=== PATIENT | female | born 1930 | race Caucasian/White ===

== ENCOUNTER 2017-06-06 07:39 | Inpatient (IN) | payer MEDICARE, OTHER ==
--- NOTE | 2017-06-06 07:49 | ED ---
General Adult HPI - General Stated complaint: Chest pain Time Seen by Provider: 06/06/17 07:39 Source: RN notes reviewed - History of Present Illness Initial comments: This is an 87-year-old female who presents emergency Department from [facility]. Patient states this morning about 1:30 she woke up chest pain she rates about 3:30 go to the hospital. When the patient got to the hospital she did have some EKG changes according to the heart beat ER and an slightly elevated troponin. Patient also states that she had some radiation of this pain to the left shoulder. There was no shortness of breath there is no swelling there was no nausea. Patient denies any diabetes or hypertension but she does have high cholesterol. Patient states she's never smoked. Patient has no family history of heart disease at young age. Patient states that they gave her aspirin and nitroglycerin and it took away her pain and she's been pain -free since. Patient denies any recent fever chills or cough per patient denies abdominal pain patient denies any vomiting or diarrhea. Patient denies headache patient denies numbness weakness. Patient denies lightheadedness dizziness or any near syncopal episode. Patient denies any swelling to the legs or calf pain. - Related Data Home Medications Medication Instructions Recorded Confirmed Latanoprost [Xalatan 0.005%] 1 drop RIGHT EYE DAILY 06/06/17 06/06/17 Levothyroxine Sodium [Synthroid] 150 mcg PO DAILY 06/06/17 06/06/17 Timolol 0.5% Ophth Soln [Timoptic 1 drop BOTH EYES BID 06/06/17 06/06/17 0.5% Ophth Soln] Allergies Allergy/AdvReac Type Severity Reaction Status Date / Time No Known Allergies Allergy Verified 06/06/17 09:08 Review of Systems ROS Statement: Those systems with pertinent positive or pertinent negative responses have been documented in the HPI. ROS Other: All systems not noted in ROS Statement are negative. General Exam - General Exam Comments Initial Comments: GENERAL: Patient is well-developed and well-nourished. Patient is nontoxic and well- hydrated and is in no acute distress. ENT: Neck is soft and supple. No significant lymphadenopathy is noted. Oropharynx is clear. Moist mucous membranes. Neck has full range of motion without eliciting any pain. EYES: The sclera were anicteric and conjunctiva were pink and moist. Extraocular movements were intact and pupils were equal round and reactive to light. Eyelids were unremarkable. PULMONARY: Unlabored respirations. Good breath sounds bilaterally. No audible rales rhonchi or wheezing was noted. CARDIOVASCULAR: There is a regular rate and rhythm without any murmurs gallops or rubs. ABDOMEN: Soft and nontender with normal bowel sounds. No palpable organomegaly was noted. There is no palpable pulsatile mass. SKIN: Skin is clear with no lesions or rashes and otherwise unremarkable. NEUROLOGIC: Patient is alert and oriented x3. Cranial nerves II through XII are grossly intact. Motor and sensory are also intact. Normal speech, volume and content. Symmetrical smile. MUSCULOSKELETAL: Normal extremities with adequate strength and full range of motion. No lower extremity swelling or edema. No calf tenderness. LYMPHATICS: No significant lymphadenopathy is noted PSYCHIATRIC: Normal psychiatric evaluation. Normal interpersonal interactions appears functionally intact in deals appropriately with others. No signs of depression. No signs of anxiety. Course Vital Signs 06/06/17 06/06/17 06/06/17 07:41 08:12 08:28 Temperature 99 F Pulse Rate 85 77 Pulse Rate [ 75 Cyber Reverse Engineer ] Respiratory 18 18 Rate Blood Pressure 153/94 148/73 O2 Sat by Pulse 100 100 Oximetry Medical Decision Making - Medical Decision Making EKG shows normal sinus rhythm at 80 bpm ID interval 156 QRS is 82 QT interval 396 QTC is 456. Patient's EKG shows no ST segment elevation or depression. However I looked at the old EKG from a patient there was some significant ST depression in precordial leads V3 through V6 as well as some slight depression in leads 2 Patient's troponin came back at 1.3. I spoke with Dr. Chong and he stated he did did not want to take the patient to the general labor forklift operator until tomorrow as long she was chest pain-free now. I spoke with Dr. Dr. Castellon he agreed to admit the patient admitted the patient I wrote admitting orders. Continue the heparin I continue Nitropaste and aspirin on the floor as well. - Lab Data Lab Results 06/06/17 Range/Units 07:48 Troponin I 1.350 H* (0.000-0.034) ng/mL Critical Care Time Critical Care Time: Yes Total Critical Care Time: 35 Disposition Clinical Impression: Non-STEMI (non-ST elevated myocardial infarction) Disposition: ADMITTED IP TO THIS HOSP Time of Disposition: 09:05
[2017-06-06] MEDS ORDERED: NITROGLYCERIN OINT 1 INCH/GM PACKET TOPICAL STA (08:01)
[2017-06-06] MEDS ORDERED: HEPARIN SOD,PORK IN 0.45% NACL 25,000 UNIT in 0.45% NACL 1 500ML.BAG IV SCH (08:15)
[2017-06-06] MEDS ORDERED: ATORVASTATIN 80 MG TAB PO STA (09:04)
[2017-06-06] MEDS ORDERED: NITROGLYCERIN SL TABS 0.4 MG TAB SUBLINGUAL PRN ×2 (09:05→12:19)
[2017-06-06] MEDS ORDERED: LIDOCAINE 2% INJ 20 MG/ML SQ ONE ×2 (11:21)
[2017-06-06] MEDS ORDERED: MIDAZOLAM 2 MG/2 ML VIAL ONE (11:25)
[2017-06-06] MEDS ORDERED: MIDAZOLAM 2 MG/2 ML VIAL IVP ONE (11:25)
--- NOTE | 2017-06-06 11:31 | CONS ---
CONSULTATION CHIEF COMPLAINT: Chest pain HISTORY OF PRESENT ILLNESS: This is an 87-year-old lady with no significant past medical history who presented to [facility] with cardiac chest pain. It came on suddenly. Describes it as a pressure-like sensation that radiated to her back and she became diaphoretic. Initial EKG showed ST-segment depression by that time and she was transferred over to [facility], where by the time she arrived here in the ER, doctor evaluated her and her chest pain has resolved and the EKG ST-segment depression has come down. The troponin came back elevated and she was started on IV heparin, aspirin, nitrates, beta blockers. While in the ER waiting for admission to the bed, she had an episode of chest pain and an EKG showed acute ST-segment elevation from V1 to V6 suggestive of an occlusion in the proximal LAD. We are taking the patient emergently for cardiac catheterization. The patient's daughter had been explained the risks, benefits and alternatives. MEDICATIONS: None. ALLERGIES: None. FAMILY HISTORY: Negative for premature coronary artery disease. SOCIAL HISTORY: Negative for smoking, ETOH abuse or drug abuse. REVIEW OF SYSTEMS: HEENT is unremarkable. Cardiac as described above. Respiratory negative. GI negative. negative. Allergy none. Skin negative. Musculoskeletal significant for arthritis. Psychosocial negative. Endocrine: Negative. Derm negative. Constitutional negative. Oncological negative. SNOWMAKER: Negative. Rest of the system review is not relevant. EXAM: Patient is comfortable at rest. Blood pressure is somewhat low at 80/60. There is no jugular venous distention, carotid upstroke is normal, there is no bruits. Chest exam revealed good air entry bilaterally. Heart: Normal first and second heart sounds. No gallop. No murmur. No rub. Abdomen: Soft. Extremities without edema. Palpable pulses felt. SNOWMAKER exam did not reveal focal neurological deficits. ASSESSMENT: Acute anterior wall myocardial infarction. PLAN: Patient will undergo emergent cardiac catheterization with a view to performing angioplasty. MMODL / IJN: [id number] /
[2017-06-06] MEDS ORDERED: SODIUM CHLORIDE 0.9% 500 ML IV ONE ×2 (11:32→11:33)
[2017-06-06] MEDS ORDERED: BIVALIRUDIN BOLUS 250 MG/50 ML IV ONE (11:41)
[2017-06-06] MEDS ORDERED: BIVALIRUDIN 250 MG in SODIUM CHLORIDE 0.9% 50 ML IV ONE (11:42)
[2017-06-06] MEDS ORDERED: NITROGLYCERIN 1000MCG/10ML SYRINGE INTRACORON ONE (11:55)
[2017-06-06] MEDS ORDERED: CLOPIDOGREL 75 MG TAB ONE (11:57)
[2017-06-06] MEDS ORDERED: LIDOCAINE 2% INJ 20 MG/ML (20 ML MDV) ONE (11:57)
[2017-06-06] MEDS ORDERED: MORPHINE SULFATE 4 MG/ML SYRINGE ONE (11:58)
[2017-06-06] MEDS ORDERED: CLOPIDOGREL 75 MG TAB PO ONE (12:03)
[2017-06-06] MEDS ORDERED: MORPHINE SULFATE 4 MG/ML SYRINGE IVP ONE (12:03)
[2017-06-06] MEDS ORDERED: IODIXANOL 320 MG/ML 100 ML INTRAARTER ONE (12:04)
[2017-06-06] MEDS ORDERED: RX INFO: IV CONTRAST WAS GIVEN 1 EACH MISC MISCELLANE PRN (12:19)
[2017-06-06] MEDS ORDERED: ZOLPIDEM 5 MG TAB PO PRN (12:19)
[2017-06-06] MEDS ORDERED: ATROPINE SULFATE 0.1 MG/ML 10ML SYRINGE IV PRN (12:19)
[2017-06-06] MEDS ORDERED: MAG HYDROX/AL HYDROX/SIMETH 30 ML CUP PO PRN (12:19)
[2017-06-06 12:53] LABS: Glucose,Whole Blood 102 mg/dL (75-99)
--- NOTE | 2017-06-06 13:01 | CC ---
CARDIAC CATHETERIZATION REPORT INDICATION: Acute ST-segment elevation HI. The patient came to our emergency room with acute ischemic syndrome and declared herself as an acute ST-segment elevation HI at 10:57. She was expeditiously brought to the supervisor laboratory animal facility for primary angioplasty. PROCEDURE NOTE: After obtaining informed consent, left heart catheterization and coronary angiogram were performed via the right femoral artery using standard Reilly catheters. The patient tolerated the procedure well without any obvious immediate complications. Patient received moderate conscious sedation. Total sedation time was 15 minutes. FINDINGS: 1. Hemodynamics: Left ventricular end-diastolic pressure is 20 mm. There is no significant gradient across aortic valve. 2. Left Ventriculogram: Left ventriculogram is not performed. 3. ANGIOGRAPHIC DATA: Left Main Coronary Artery: Left main coronary artery is normal size vessel and is free of stenosis. Divides into left anterior descending coronary artery and circumflex coronary artery. LAD shows a 99% stenosis in its midportion at the origin of the 2nd diagonal branch. Circumflex coronary artery and its branches have significant stenosis. Right coronary artery is a large dominant vessel and is free of significant stenosis. CONCLUSIONS: A 99% focal stenosis in LAD which is a vessel responsible for the myocardial infarction. The patient will undergo angioplasty with stent placement of the LAD by Dr. Elma Hoang, the on-call application penetration tester. MMODL / IJN: [id number] /
[2017-06-06] MEDS: SODIUM CHLORIDE 0.9% 1,000 ML IV SCH (13:10)
[2017-06-06] MEDS: NITROGLYCERIN OINT 1 INCH/GM PACKET TOPICAL SCH ×2 (13:10→17:49)
--- NOTE | 2017-06-06 13:22 | PTCA ---
PERCUTANEOUSTRANS CORORONARY ANGIOGRAPHY DATE OF SERVICE: 06/06/17. PROCEDURE: PTCA and stenting of proximal LAD with a drug-eluting stent performed in the setting of an acute ST-elevation myocardial infarction with reperfusion accomplished in 47 minutes. PERFORMED BY: Dr. Gabo Hoang. ANESTHESIA: Moderate conscious sedation time was 26 minutes. Patient was given Versed and Benadryl and monitored closely with her oxygen saturation as well as vital signs and EKG. CLINICAL INFORMATION: Mrs. Coco Segundo is 87-year-old lady with a history of hypertension and hypothyroidism, transferred from [facility] with mild troponin elevation. Her EKG was normal and she was pain free. While in the emergency room waiting to go to telemetry unit, she developed chest pain and demonstrated ST elevation. This occurred at 10:57 a.m. A STEMI alert was called and she was evaluated by Dr. Chong, who performed coronary angiography, which revealed a 95% proximal LAD stenosis. The patient was pain free when I began the procedure. She has noncritical disease in other vessels and mildly elevated filling pressures. PROCEDURE NOTE: The existing 6-Malawian introducer in the right femoral artery was used to perform procedure. A standard left Reilly guide catheter was used to cannulate the left coronary artery. A run-through wire was used to cross the lesion. Wire was kept distally. A 2.75 caliber 12 mm NC trek balloon was used to pre-dilate the lesion. A 23 mm long 3.25 caliber Xience stent was deployed at 11 atmospheres. Patient had chest pain and precordial ST elevation. Excellent angiographic result was achieved. She received Angiomax bolus and infusion and 600 mg of Plavix. The sheath was taken out and a Perclose device used to secure hemostasis. Initially, there was good hemostasis, but then the sutures seemed to have come loose when I cut it and patient started bleeding. Manual compression was applied and FemoStop will also be applied. Patient tolerated procedure well without complication. Findings and results were discussed with the patient and family members. She was sent to the room in a stable condition. MMODL / JCARLOSN: [id number] /
[2017-06-06 14:30] LABS: Creatine Kinase MB 7.4 ng/mL (0.0-2.4); Troponin I 1.49 ng/mL (0.000-0.034)
--- NOTE | 2017-06-06 16:34 | HP ---
HISTORY AND PHYSICAL DATE OF SERVICE: June 06, 2017. CHIEF COMPLAINT: Chest pain. BRIEF HISTORY: Patient is an 87-year-old female patient with no significant past medical history, presented to emergency department from [facility] with chest pain. The patient described it as a pressure-like sensation in the middle of the chest and radiating to her back and associated with diaphoresis. The patient also related that the pain radiated to her left shoulder. No shortness of breath and no nausea or vomiting. Patient has no history of diabetes or hypertension. No history of hyperlipidemia. No history of smoking. FAMILY HISTORY: No family history of heart disease at a young age. The patient was given aspirin and nitroglycerin in the ED and she became chest pain free. The EKG showed ST depression. Cardiac workup was done which showed an elevated troponin. The patient was started on IV heparin, aspirin, beta blockers and nitrates and patient was transferred to our ED. While in the ER, patient had an episode of chest pain, which at this point showed an acute ST elevation from V1 to V6 suggestive occlusion in proximal LAD. The patient was taken from the emergency room for cardiac catheterization. PAST MEDICAL HISTORY: Significant for hypothyroidism, history of cataracts. ALLERGIES: She has no known drug allergies. MEDICATIONS: Patient is on Xalatan eye drops 1 drop right eye daily. Levothyroxine 150 mcg daily. Timoptic eyedrops 1 drop both eyes b.i.d. SOCIAL HISTORY: Patient denies any history of smoking or alcohol abuse. No IV drug abuse. Family history is negative for coronary artery disease at a younger age. REVIEW OF SYSTEM: Constitutional: Patient denies any fever or chills. HEENT no vision or speech, or hearing loss. Respiratory does give history of shortness of breath with chest pain. No cough. No chest congestion. No wheezing. Cardiovascular as per HPI. Abdomen/GI: No nausea, vomiting or diarrhea. Genitourinary no hematuria. No dysuria. Nervous system: No dizziness or lightheadedness or weakness. Musculoskeletal: No joint or soft tissue deformities. No rashes or pigmentation. Endocrine: No polyuria or polydipsia. Hematological: No bleeding or coagulation disorders. Rest of 14-point review of system is unremarkable. PHYSICAL EXAMINATION: GENERAL: Patient is awake, alert and oriented. She is well developed and well nourished, in no acute distress. Vital signs: Temperature 99, pulse 85, respiration 18, blood pressure 153/94, O2 saturation 100%. HEENT atraumatic, normocephalic. Pupils equal and react to light. Extraocular movements intact. Buccal mucosa is moist. NECK: Supple. No goiter or lymphadenopathy. JVD is negative. No carotid bruit heard. Lungs are clear to auscultation. No rales, rhonchi, or wheezes. Heart is regular rate and rhythm without any murmurs or gallop rhythm. ABDOMEN: Soft, nontender, nondistended. Bowel sounds positive. EXTREMITIES: No edema, clubbing or cyanosis. Neurological examination: Cranial nerves 2-12 grossly intact. No gross motor or sensory deficit. Skin is warm, dry and intact. Psychiatric examination: The patient has sound judgment and affect. LABS: Available in our emergency department, patient's glucose of 102, troponin 1.35 on arrival and increasing to 1.490. For the rest of the workup, please see the patient's chart. ASSESSMENT: 1. Acute anterior wall myocardial infarction. 2. Hypertension, which was elevated upon arrival later dropped down to 80/60. PLAN: Patient was started on IV heparin in [facility] and aspirin and beta blockers. Plan is for patient to be transferred to cardiac laboratory scientist and be followed up by Cardiology. Will undergo cardiac catheterization and further treatment. MMODL / IJN: [id number] /
[2017-06-06] MEDS: METOPROLOL TARTRATE 12.5 MG TAB PO SCH ×2 (17:49→21:22)
[2017-06-06] MEDS: LISINOPRIL 5 MG TAB PO SCH (20:43)
[2017-06-06] MEDS: TIMOLOL 0.5% OPHTH DROPS 5 ML BTL BOTH EYES SCH (20:43)
[2017-06-06 21:11] LABS: Creatine Kinase MB 8.8 ng/mL (0.0-2.4)
[2017-06-06 21:12] LABS: Troponin I 2.02 ng/mL (0.000-0.034)
[2017-06-07] MEDS: NITROGLYCERIN OINT 1 INCH/GM PACKET TOPICAL SCH ×3 (00:08→10:55)
[2017-06-07] MEDS: SODIUM CHLORIDE 0.9% 1,000 ML IV SCH (00:08)
[2017-06-07 04:47] LABS: Basophils % (A) 0 %; Eosinophils # (A) 0.1 k/uL (0-0.7); Eosinophils % (A) 1 %; HCT 30.8 % (34.0-46.0); HGB 9.6 gm/dL (11.4-16.0); Lymphocytes # (A) 1.2 k/uL (1.0-4.8); Lymphocytes % (A) 14 %; MCV 87.1 fL (80.0-100.0); Mean Platelet Volume 7.1; Monocytes # (A) 0.4 k/uL (0-1.0); Monocytes % (A) 5 %; Neutrophils # (A) 6.8 k/uL (1.3-7.7); Neutrophils % (A) 79 %; Platelet Count 224 k/uL (150-450); RBC 3.54 m/uL (3.80-5.40); RDW 14.1 % (11.5-15.5); WBC 8.6 k/uL (3.8-10.6)
[2017-06-07 04:59] LABS: Anion Gap 9 mmol/L; Blood Urea Nitrogen 17 mg/dL (7-17); Calcium 8.7 mg/dL (8.4-10.2); Carbon Dioxide 21 mmol/L (22-30); Chloride 106 mmol/L (98-107); Cholesterol 197 mg/dL (<200); Glucose 122 mg/dL (74-99); HDL Cholesterol 48 mg/dL (40-60); LDL Cholesterol,Calculated 120 mg/dL (0-99); Potassium 4.4 mmol/L (3.5-5.1); Sodium 136 mmol/L (137-145); Triglycerides 145 mg/dL (<150)
[2017-06-07] MEDS: LEVOTHYROXINE 75 MCG TAB PO SCH (06:25)
[2017-06-07] MEDS: CLOPIDOGREL 75 MG TAB PO SCH (08:28)
[2017-06-07] MEDS: METOPROLOL TARTRATE 12.5 MG TAB PO SCH ×2 (08:28→16:44)
[2017-06-07] MEDS: ASPIRIN 81 MG PO SCH (08:28)
[2017-06-07] MEDS: TIMOLOL 0.5% OPHTH DROPS 5 ML BTL BOTH EYES SCH ×2 (08:29→20:31)
[2017-06-07] MEDS: LATANOPROST 0.005% OPHTH DROPS 2.5 ML BTL RIGHT EYE SCH (08:29)
[2017-06-07] MEDS ORDERED: ASPIRIN 325 MG TAB PO SCH (09:00)
[2017-06-07 10:08] VITALS: BMI 24.7
--- NOTE | 2017-06-07 12:43 | ECHOF ---
Referral Reason:S/P Ant STEMI and LAD PCI MEASUREMENTS -------- HEIGHT: 162.6 cm WEIGHT: 67.6 kg BP: 109/50 IVSd: 1.1 cm (0.6 - 1.1) LVIDd: 4.2 cm (3.9 - 5.3) LVPWd: 0.9 cm (0.6 - 1.1) IVSs: 1.5 cm LVIDs: 2.3 cm LVPWs: 1.5 cm LAESV Index (A-L): 27.32 ml/m Ao Diam: 3.3 cm (2.0 - 3.7) AV Cusp: 2.2 cm (1.5 - 2.6) LA Diam: 3.9 cm (2.7 - 3.8) MV EXCURSION: 14.924 mm (> 18.000) MV EF SLOPE: 68 mm/s (70 - 150) EPSS: 0.6 cm MV E Sabino: 1.00 m/s MV DecT: 221 ms MV A Sabino: 1.24 m/s MV E/A Ratio: 0.81 RAP: 5.00 mmHg RVSP: 33.45 mmHg FINDINGS -------- Sinus rhythm. This was a technically good study. The left ventricular size is normal. Left ventricular wall thickness is normal. Overall left vent ricular systolic function is mildly impaired with, an EF between 45 - 50 %. Apical anterior LV wall motion is hypokinetic. Apical septum LV wall motion is hypokinetic. The right ventricle is normal in size and function. The left atrium is normal in size. The right atrium is normal in size. The aortic valve is trileaflet, and appears structurally normal. No aortic stenosis or regurgitation. The mitral valve leaflets are mildly thickened. Moderate mitral regurgitation is present. Mild tricuspid regurgitation present. The right ventricular systolic pressure, as measured by Doppl er, is 33.45mmHg. Pulmonic valve appears structurally normal. The aortic root size is normal. Normal inferior vena cava with normal inspiratory collapse consistent with estimated right atrial pre ssure of 5 mmHg. The pericardium is normal. CONCLUSIONS -------- 1. Sinus rhythm. 2. This was a technically good study. 3. The left ventricular size is normal. 4. Left ventricular wall thickness is normal. 5. The right ventricle is normal in size and function. 6. The left atrium is normal in size. 7. The right atrium is normal in size. 8. The aortic valve is trileaflet, and appears structurally normal. No aortic stenosis or regurgitati on. 9. The mitral valve leaflets are mildly thickened. 10. Moderate mitral regurgitation is present. 11. Mild tricuspid regurgitation present. 12. The right ventricular systolic pressure, as measured by Doppler, is 33.45mmHg. 13. Pulmonic valve appears structurally normal. 14. The aortic root size is normal. 15. Normal inferior vena cava with normal inspiratory collapse consistent with estimated right atrial pressure of 5 mmHg. 16. The pericardium is normal. CIVIL ENGINEERING TECHNICIAN: Mary White RDCS
--- NOTE | 2017-06-07 13:20 | PN ---
PROGRESS NOTE An 87-year-old lady that was admitted to hospital with acute anterior wall myocardial infarction, underwent cardiac catheterization and angioplasty of mid LAD. This morning she is feeling fine. Denies chest pain, difficulty in breathing or palpitations. Remains in sinus rhythm and hemodynamically stable. An echocardiogram on her shows apical septal hypokinesis with an ejection fraction of 45% to 50%. She has had 4 sets of troponins, the last one was 2.3. Her LDL cholesterol is 130. On exam, comfortable at rest. Heart rate is around 70 beats per minute. Blood pressure is 101/53, respiratory rate is 18. Chest exam reveals good air entry bilaterally. Heart exam reveals first and second heart sounds. No gallop. Examination of extremities did not reveal edema. Peripheral pulses are felt. The patient is currently on aspirin, Lipitor, Zestril, Lopressor. Her groin is free of bleeding, bruit, hematoma and there is mild ecchymosis. ASSESSMENT: Acute anterior wall myocardial infarction, status post catheterization and angioplasty. PLAN: Patient is doing well. She is stable to be transferred out of ICU. We should be able to discharge her home over the next 24 to 48 hours. MMODL / IJN: [id number] /
--- NOTE | 2017-06-07 16:53 | P.PN ---
Subjective Progress Note Date: 06/07/17 Progress note being dictated for Dr. Castellon. Interval history: This 87-year-old female admitted with acute anterior wall MD, status post cardiac catheterization with angioplasty of the LAD. Telemetry sinus rhythm. Continues to do well. Good diet intake with no nausea vomiting or diarrhea. Denies chest pain, palpitations or increasing shortness of breath. Echo reports mildly impaired LV function, EF 45-50%, hypokinetic apical anterior LV wall motion, moderate mitral regurgitation. Troponin is 1.35 , 1.49, 2.02, 2.350. Cholesterol 197, LDL 120. Objective - Vital Signs Vital signs: Vital Signs Temp 98.9 F 06/07/17 12:00 Pulse 70 06/07/17 12:30 Resp 47 H 06/07/17 12:30 BP 101/53 06/07/17 12:30 Pulse Ox 96 06/07/17 12:30 Intake & Output 06/06/17 06/07/17 06/07/17 18:59 06:59 18:59 Intake Total 981 1100 900 Output Total 1050 1325 550 Balance -69 -225 350 Weight 67.585 kg 65.4 kg 65.4 kg Intake: IV 531 825 Sodium Chloride 0.9% 1, 825 000 ml @ 75 mls/hr IV . [id number] THOMAS Rx#:[id number] Intake, IV Titration 450 75 Amount Sodium Chloride 0.9% 1, 450 75 000 ml @ 75 mls/hr IV . [id number] THOMAS Rx#:[id number] Oral 200 900 Output: Urine 1050 1325 550 Other: Voiding Method Indwelling Catheter Indwelling Catheter Indwelling Catheter - Exam PHYSICAL EXAM: VITAL SIGNS: [As above] GENERAL: Sitting up in bed, no acute distress, reading the newspaper HEENT: Conjunctivae normal. eyes normal. Oral mucosa moist. NECK: No JVD. No thyroid enlargement. No LNs CARDIOVASCULAR: S1, S2 muffled. Positive systolic murmur RESPIRATION: Breath sounds diminished in the bases. No rhonchi or crackles. No bronchial breathing. ABDOMEN: Soft, nontender . No guarding. no masses palpable. Bowel sounds heard. LEGS: No edema. no swelling PSYCHIATRY: Alert and oriented -3, mood and affect normal. NERVOUS SYSTEM: Cranial N 2-12 grossly normal. Moves all 4 limbs. Diffuse weakness No focal deficits. Skin: no ulcer no rash Joints: No active swelling. No inflammation. Lymphatic system. No LN neck axilla or groin. - Labs CBC & Chem 7: 06/07/17 04:17 06/07/17 04:17 Labs: Abnormal Lab Results - Last 24 Hours (Table) 06/06/17 06/06/17 06/06/17 Range/Units 12:51 13:23 20:03 RBC (3.80-5.40) m/uL Hgb (11.4-16.0) gm/dL Hct (34.0-46.0) % Sodium (137-145) mmol/L Carbon Dioxide (22-30) mmol/L Glucose (74-99) mg/dL POC Glucose (mg/dL) 102 H (75-99) mg/dL CK-MB (CK-2) 7.4 H* 8.8 H* (0.0-2.4) ng/mL Troponin I 1.490 H* 2.020 H* (0.000-0.034) ng/mL LDL Cholesterol, Calc (0-99) mg/dL 06/07/17 06/07/17 06/07/17 Range/Units 04:17 04:17 04:17 RBC 3.54 L (3.80-5.40) m/uL Hgb 9.6 L (11.4-16.0) gm/dL Hct 30.8 L (34.0-46.0) % Sodium 136 L (137-145) mmol/L Carbon Dioxide 21 L (22-30) mmol/L Glucose 122 H (74-99) mg/dL POC Glucose (mg/dL) (75-99) mg/dL CK-MB (CK-2) (0.0-2.4) ng/mL Troponin I 2.350 H* (0.000-0.034) ng/mL LDL Cholesterol, Calc 120 H (0-99) mg/dL Assessment and Plan Assessment: 1. Acute anterior wall MD, status post catheterization and angioplasty of the LAD 2. Hypertension 3. Hyperlipidemia Plan: Continue current medication regime , aspirin, statin, beta ike , monitoring and symptomatic treatment. Awaiting transfer out of ICU to telemetry unit. Follow closely with cardiology. Discharge planning in progress for possibly tomorrow pending cardiology clearance. The impression and plan of care has been dictated as directed. : I performed a history and examination of this patient, discussed the same with the dictator. I agree with the dictator's note ,documented as a scribe. Any additional findings or plans will be noted.
[2017-06-07] MEDS: LISINOPRIL 5 MG TAB PO SCH (20:32)
[2017-06-07] MEDS: ATORVASTATIN 40 MG TAB PO SCH (20:32)
[2017-06-08] MEDS: METOPROLOL TARTRATE 12.5 MG TAB PO SCH ×4 (00:03→20:23)
[2017-06-08 06:55] LABS: HCT 30.4 % (34.0-46.0); HGB 10.4 gm/dL (11.4-16.0); MCHC 34.2 g/dL (31.0-37.0); MCV 84.7 fL (80.0-100.0); Mean Platelet Volume 6.9; Platelet Count 203 k/uL (150-450); RBC 3.59 m/uL (3.80-5.40); RDW 13.7 % (11.5-15.5); WBC 7.9 k/uL (3.8-10.6)
[2017-06-08 07:18] LABS: Anion Gap 9 mmol/L; Blood Urea Nitrogen 13 mg/dL (7-17); Calcium 8.7 mg/dL (8.4-10.2); Carbon Dioxide 24 mmol/L (22-30); Chloride 102 mmol/L (98-107); Glucose 103 mg/dL (74-99); Potassium 4.4 mmol/L (3.5-5.1); Sodium 135 mmol/L (137-145)
[2017-06-08] MEDS: LEVOTHYROXINE 75 MCG TAB PO SCH (08:24)
[2017-06-08] MEDS: ASPIRIN 81 MG PO SCH (08:24)
[2017-06-08] MEDS: TIMOLOL 0.5% OPHTH DROPS 5 ML BTL BOTH EYES SCH ×2 (08:25→20:24)
[2017-06-08] MEDS: LATANOPROST 0.005% OPHTH DROPS 2.5 ML BTL RIGHT EYE SCH (08:25)
[2017-06-08] MEDS: CLOPIDOGREL 75 MG TAB PO SCH (08:25)
--- NOTE | 2017-06-08 14:10 | PN ---
PROGRESS NOTE An 87-year-old lady who was admitted to hospital with acute myocardial infarction. Underwent cardiac catheterization, angioplasty of LAD. She is doing well and is free of cardiac symptoms. Remains in sinus rhythm. Blood pressure is normal. Patient is on aspirin, Lipitor, Plavix, Zestril, Lopressor. PHYSICAL EXAM: Comfortable at rest. Vital signs are stable. There is no jugular venous distention. Carotid upstroke is normal. There is no bruit. Chest exam reveals good air entry bilaterally. Heart exam reveals first and second heart sounds. No gallop. No murmur. Abdomen is soft, nontender. Exam of extremities did not reveal any edema. Peripheral pulses are felt. ASSESSMENT: Status post acute anterior wall myocardial infarction. PLAN: Patient is doing well. Will ambulate her, answer a lot of questions from the patient's daughter. We should be able to discharge her home tomorrow. MMODL / IJN: [id number] /
--- NOTE | 2017-06-08 16:26 | P.PN ---
Subjective Progress Note Date: 06/08/17 Progress note being dictated for Dr. Castellon. Interval history: This 87-year-old female admitted with acute anterior wall MA, status post cardiac catheterization with angioplasty of the LAD. Telemetry sinus rhythm. Continues to do well. Good diet intake with no nausea vomiting or diarrhea. Denies chest pain, palpitations or increasing shortness of breath. Echo reports mildly impaired LV function, EF 45-50%, hypokinetic apical anterior LV wall motion, moderate mitral regurgitation. Troponin is 1.35 , 1.49, 2.02, 2.350. Cholesterol 197, LDL 120. 06/08/17 no overnight events. Telemetry sinus rhythm. Ambulating with in room with no chest pain, no focal deficits, no dizziness, no palpitations, no increased shortness of breath. Objective - Vital Signs Vital signs: Vital Signs Temp 98.2 F 06/08/17 14:00 Pulse 71 06/08/17 15:00 Resp 24 06/08/17 16:00 BP 146/66 06/08/17 14:00 Pulse Ox 98 06/08/17 14:00 Intake & Output 06/07/17 06/08/17 06/08/17 18:59 06:59 18:59 Intake Total 1500 370 720 Output Total 550 0 Balance 950 370 720 Weight 65.4 kg 65.6 kg 65.6 kg Intake: Oral 1500 370 720 Output: Urine 550 0 Other: Voiding Method Toilet Toilet Toilet # Voids 1 1 1 - Exam PHYSICAL EXAM: VITAL SIGNS: [As above] GENERAL: Sitting up in bed, no acute distress HEENT: Conjunctivae normal. eyes normal. Oral mucosa moist. NECK: No JVD. No thyroid enlargement. No LNs CARDIOVASCULAR: S1, S2 muffled. No murmurs RESPIRATION: Breath sounds diminished in the bases. No rhonchi or crackles. ABDOMEN: Soft, nontender . No guarding. no masses palpable. Bowel sounds heard. LEGS: No edema. no swelling PSYCHIATRY: Alert and oriented -3, mood and affect normal. NERVOUS SYSTEM: Cranial N 2-12 grossly normal. Moves all 4 limbs. No focal deficits. Skin: no ulcer no rash Joints: No active swelling. No inflammation. Lymphatic system. No LN neck axilla or groin. - Labs CBC & Chem 7: 06/08/17 06:28 06/08/17 06:28 Labs: Abnormal Lab Results - Last 24 Hours (Table) 06/08/17 06/08/17 Range/Units 06:28 06:28 RBC 3.59 L (3.80-5.40) m/uL Hgb 10.4 L (11.4-16.0) gm/dL Hct 30.4 L (34.0-46.0) % Sodium 135 L (137-145) mmol/L Glucose 103 H (74-99) mg/dL Assessment and Plan Assessment: 1. Acute anterior wall MA, status post catheterization and angioplasty of the LAD 2. Hypertension 3. Hyperlipidemia Plan: Continue current medication regime , aspirin, statin, beta kie , monitoring and symptomatic treatment. Increase ambulation as tolerated. Follow closely with cardiology. Discharge planning in progress for tomorrow pending cardiology clearance. The impression and plan of care has been dictated as directed. : I performed a history and examination of this patient, discussed the same with the dictator. I agree with the dictator's note ,documented as a scribe. Any additional findings or plans will be noted.
[2017-06-08] MEDS: ATORVASTATIN 40 MG TAB PO SCH (20:23)
[2017-06-09] MEDS: LISINOPRIL 5 MG TAB PO SCH (01:23)
[2017-06-09 05:13] LABS: Basophils % (A) 0 %; Eosinophils # (A) 0.3 k/uL (0-0.7); Eosinophils % (A) 4 %; HCT 29.7 % (34.0-46.0); HGB 10.2 gm/dL (11.4-16.0); Lymphocytes # (A) 1.4 k/uL (1.0-4.8); Lymphocytes % (A) 20 %; MCH 28.7 pg (25.0-35.0); MCHC 34.2 g/dL (31.0-37.0); Mean Platelet Volume 7.1; Monocytes # (A) 0.4 k/uL (0-1.0); Monocytes % (A) 5 %; Neutrophils # (A) 4.8 k/uL (1.3-7.7); Neutrophils % (A) 68 %; Platelet Count 213 k/uL (150-450); RBC 3.54 m/uL (3.80-5.40); RDW 13.8 % (11.5-15.5)
[2017-06-09 05:21] LABS: Prothrombin Time 10.2 sec (9.0-12.0)
[2017-06-09 05:27] LABS: Anion Gap 7 mmol/L; Blood Urea Nitrogen 16 mg/dL (7-17); Carbon Dioxide 27 mmol/L (22-30); Chloride 102 mmol/L (98-107); Glucose 106 mg/dL (74-99); Magnesium 1.9 mg/dL (1.6-2.3); Phosphorus 3.5 mg/dL (2.5-4.5); Potassium 4.6 mmol/L (3.5-5.1); Sodium 136 mmol/L (137-145)
[2017-06-09] MEDS: LEVOTHYROXINE 75 MCG TAB PO SCH (07:16)
[2017-06-09] MEDS: LATANOPROST 0.005% OPHTH DROPS 2.5 ML BTL RIGHT EYE SCH (07:59)
[2017-06-09] MEDS: METOPROLOL TARTRATE 12.5 MG TAB PO SCH (07:59)
[2017-06-09] MEDS: TIMOLOL 0.5% OPHTH DROPS 5 ML BTL BOTH EYES SCH (07:59)
[2017-06-09] MEDS: ASPIRIN 81 MG PO SCH (08:00)
[2017-06-09] MEDS: CLOPIDOGREL 75 MG TAB PO SCH (08:00)
[2017-06-09 08:36] VITALS: TEMP 98
[2017-06-09 11:33] VITALS: BP 113/54; PULSE 62; RESP 19
--- NOTE | 2017-06-09 12:44 | PN ---
PROGRESS NOTE Coco is an 87-year-old lady that is admitted to hospital with anterior wall myocardial infarction, underwent cardiac catheterization and angioplasty. This morning, she is feeling well, has some ecchymosis in the groin, but denies any symptoms otherwise. She is on aspirin, Plavix, Lipitor, Zestril 5 mg daily, Lopressor 12.5 b.i.d., and sublingual nitroglycerin on p.r.n. basis. On exam, comfortable at rest. Vital signs are stable. There is no jugular venous distention. Carotid upstroke is normal. There is no bruit. Chest exam reveals good air entry bilaterally. Heart exam reveals first and second heart sounds. No gallop. No murmur. No rub. Abdomen is soft, nontender. Examination of extremities did not reveal any edema. Peripheral pulses are palpable. Groin exam reveals ecchymosis, but there is no hematoma and no bruit. ASSESSMENT: Acute anterior wall myocardial infarction, status post catheterization and angioplasty. The patient is doing well. She is stable to be discharged home and she will have her follow up through [facility] as per her request. MMODL / IJN: [id number] /
--- NOTE | 2017-06-10 21:03 | P.DS ---
Providers Date of admission: 06/06/17 09:16 Expected date of discharge: 06/09/17 Attending physician: Giovanny Castellon Consults: 06/06/17 09:05 Consult Physician Urgent Consulting Provider: Latosha Hernandez Consult Reason/Comments: Non-STEMI Do you want consulting provider notified?: Yes 06/06/17 12:19 Consult Physician Routine Consulting Provider: Latosha Hernandez Consult Reason/Comments: Post Interventional patient Do you want consulting provider notified?: Already Contacted Primary care physician: Thomas Ceballos MD Hospital Course: Final Diagnoses: 1. Acute anterior wall [place], status post catheterization and angioplasty of the LAD 2. Hypertension 3. Hyperlipidemia Hospital Course:This 87-year-old female admitted with acute anterior wall [place] and multiple other medical issues.evaluated by cardiology., status post cardiac catheterization with angioplasty of the LAD. Telemetry sinus rhythm. Echo reports mildly impaired LV function, EF 45-50%, hypokinetic apical anterior LV wall motion, moderate mitral regurgitation. Troponin is 1.35, 1.49, 2.02, 2.350. Cholesterol 197, LDL 120.significant clinical improvement. Patient has been cleared for discharge by cardiology. Patient is being discharged home in a stable condition with guarded prognosis. GENERAL: VSS, no acute distress HEENT: Conjunctivae normal. eyes normal. Oral mucosa moist. NECK: No JVD. No thyroid enlargement. No LNs CARDIOVASCULAR: S1, S2 muffled. No murmurs RESPIRATION: Breath sounds diminished in the bases. No rhonchi or crackles. ABDOMEN: Soft, nontender . No guarding. no masses palpable. Bowel sounds heard. LEGS: No edema. no swelling PSYCHIATRY: Alert and oriented -3, mood and affect normal. NERVOUS SYSTEM: Cranial N 2-12 grossly normal. Moves all 4 limbs. No focal deficits. Skin: no ulcer no rash Joints: No active swelling. No inflammation. Lymphatic system. No LN neck axilla or groin. The impression and plan of care has been dictated as directed. : I performed a history and examination of this patient, discussed the same with the dictator. I agree with the dictator's note ,documented as a scribe. Any additional findings or plans will be noted. time taken: 35 minutes Patient Condition at Discharge: Stable Plan - Discharge Summary Discharge Rx Participant: Yes New Discharge Prescriptions: New Aspirin 81 mg PO DAILY #30 chew Atorvastatin [Lipitor] 40 mg PO HS #30 tab Clopidogrel [Plavix] 75 mg PO DAILY #30 tab Lisinopril [Zestril] 5 mg PO HS #30 tab Metoprolol Tartrate [Lopressor] 12.5 mg PO TID #90 tab Nitroglycerin Sl Tabs [Nitrostat] 0.4 mg SUBLINGUAL Q5M PRN #25 tab PRN Reason: Chest Pain Continue Timolol 0.5% Ophth Soln [Timoptic 0.5% Ophth Soln] 1 drop BOTH EYES BID Levothyroxine Sodium [Synthroid] 150 mcg PO DAILY Latanoprost [Xalatan 0.005%] 1 drop RIGHT EYE DAILY Discharge Medication List Latanoprost [Xalatan 0.005%] 1 drop RIGHT EYE DAILY 06/06/17 [History] Levothyroxine Sodium [Synthroid] 150 mcg PO DAILY 06/06/17 [History] Timolol 0.5% Ophth Soln [Timoptic 0.5% Ophth Soln] 1 drop BOTH EYES BID [History] Aspirin 81 mg PO DAILY #30 chew 06/09/17 [Rx] Atorvastatin [Lipitor] 40 mg PO HS #30 tab 06/09/17 [Rx] Clopidogrel [Plavix] 75 mg PO DAILY #30 tab 06/09/17 [Rx] Lisinopril [Zestril] 5 mg PO HS #30 tab 06/09/17 [Rx] Metoprolol Tartrate [Lopressor] 12.5 mg PO TID #90 tab 06/09/17 [Rx] Nitroglycerin Sl Tabs [Nitrostat] 0.4 mg SUBLINGUAL Q5M PRN #25 tab 06/09/17 [Rx ] Follow up Appointment(s)/Referral(s): [facility], [NON-STAFF] - Thomas Ceballos MD [Primary Care Provider] - 3 Days Rito Chong MD [STAFF PHYSICIAN] - 10 Days (Follow up with Dr Bellamy in [place] on 07/01/2017 @ 4PM) Ambulatory/Diagnostic Orders: Complete Blood Count w/diff [LAB.AMB] Time Frame: 3 Days, Location: Determined By Patient Patient Instructions/Handouts: Myocardial Infarction (DC), Heart Catheterization (DC) Activity/Diet/Wound Care/Special Instructions: DIet: Cardiac Activity: limited till f/u Discharge Disposition: HOME SELF-CARE
== END 2017-06-09 13:51 | disposition home or self-care (01) | DRG 247 ==
LOC: EC 07:39 → 6SEL 09:16 → 6ICU 12:05
PROVIDERS: ADMIT Internal Medicine; ATTEND Internal Medicine
PROC: B2111ZZ Fluoroscopy of Multiple Coronary Arteries using Low Osmolar Contrast (ICD-10-PCS; principal; 2017-06-06 11:11)
PROC: 4A023N7 Measurement of Cardiac Sampling and Pressure, Left Heart, Percutaneous Approach (ICD-10-PCS; principal; 2017-06-06 11:11)
PROC: 027034Z Dilation of Coronary Artery, One Artery with Drug-eluting Intraluminal Device, Percutaneous Approach (ICD-10-PCS; principal; 2017-06-06 11:11)
DX: I21.09 ST elevation (STEMI) myocardial infarction involving other coronary artery of anterior wall (principal); I34.0 Nonrheumatic mitral (valve) insufficiency; E03.9 Hypothyroidism, unspecified; E78.00 Pure hypercholesterolemia, unspecified; E78.5 Hyperlipidemia, unspecified; I10 Essential (primary) hypertension; I25.10 Atherosclerotic heart disease of native coronary artery without angina pectoris; Z79.82 Long term (current) use of aspirin; Z79.899 Other long term (current) drug therapy; Z79.890 Hormone replacement therapy; H26.9 Unspecified cataract
CPT/HCPCS: 36415; 80048; 80061; 82550; 82553; 83735; 84100; 84484; 85025; 85027; 85610; 93005; 93306; 93458; 96365; 96366; 99291

== ENCOUNTER 2017-06-28 00:54 | Observation (INO) | payer MEDICARE, OTHER ==
[2017-06-28] MEDS ORDERED: HEPARIN SODIUM,PORCINE 5,000 UNIT/ML 1 ML VIAL IV ONE (01:06)
--- NOTE | 2017-06-28 01:06 | ED ---
General Adult HPI - General Chief complaint: Chest Pain Stated complaint: Chest Pain Time Seen by Provider: 06/28/17 00:55 Source: patient, EMS, RN notes reviewed Mode of arrival: EMS Limitations: no limitations - History of Present Illness Initial comments: This is an 87-year-old female who recently had a heart attack and had one stent placed. Patient comes in to our hospital from [place]. Earlier today she had chest pain she took 2 nitroglycerin and passed out and when she awoke she states the chest pain was gone. Patient states since that time she's had no chest pain or difficulty breathing or shortness of breath. Patient denies any diaphoresis. Patient denies nausea vomiting diarrhea. [facility] wanted to transfer the patient to us because of her recent history of a heart attack and this significantly chest pain being relieved by nitroglycerin. Patient currently has no complaints. Patient denies any recent fever chills or cough. Patient denies any lightheadedness or dizziness. Patient denies any headache patient denies numbness weakness. - Related Data Home Medications Medication Instructions Recorded Confirmed Latanoprost [Xalatan 0.005%] 1 drop RIGHT EYE DAILY 06/06/17 06/06/17 Levothyroxine Sodium [Synthroid] 150 mcg PO DAILY 06/06/17 06/06/17 Timolol 0.5% Ophth Soln [Timoptic 1 drop BOTH EYES BID 06/06/17 06/06/17 0.5% Ophth Soln] Previous Rx's Medication Instructions Recorded Aspirin 81 mg PO DAILY #30 chew 06/09/17 Atorvastatin [Lipitor] 40 mg PO HS #30 tab 06/09/17 Clopidogrel [Plavix] 75 mg PO DAILY #30 tab 06/09/17 Lisinopril [Zestril] 5 mg PO HS #30 tab 06/09/17 Metoprolol Tartrate [Lopressor] 12.5 mg PO TID #90 tab 06/09/17 Nitroglycerin Sl Tabs [Nitrostat] 0.4 mg SUBLINGUAL Q5M PRN #25 tab 06/09/17 Allergies Allergy/AdvReac Type Severity Reaction Status Date / Time No Known Allergies Allergy Verified 06/28/17 01:01 Review of Systems ROS Statement: Those systems with pertinent positive or pertinent negative responses have been documented in the HPI. ROS Other: All systems not noted in ROS Statement are negative. Past Medical History Past Medical History: Eye Disorder, Thyroid Disorder Additional Past Medical History / Comment(s): glaucoma History of Any Multi-Drug Resistant Organisms: None Reported Past Surgical History: Heart Catheterization With Stent Additional Past Surgical History / Comment(s): colonoscopy, cataracts Past Anesthesia/Blood Transfusion Reactions: No Reported Reaction Past Psychological History: No Psychological Hx Reported Smoking Status: Never smoker Past Alcohol Use History: None Reported Past Drug Use History: None Reported General Exam - General Exam Comments Initial Comments: GENERAL: Patient is well-developed and well-nourished. Patient is nontoxic and well- hydrated and is in no acute distress. ENT: Neck is soft and supple. No significant lymphadenopathy is noted. Oropharynx is clear. Moist mucous membranes. Neck has full range of motion without eliciting any pain. EYES: The sclera were anicteric and conjunctiva were pink and moist. Extraocular movements were intact and pupils were equal round and reactive to light. Eyelids were unremarkable. PULMONARY: Unlabored respirations. Good breath sounds bilaterally. No audible rales rhonchi or wheezing was noted. CARDIOVASCULAR: There is a regular rate and rhythm without any murmurs gallops or rubs. ABDOMEN: Soft and nontender with normal bowel sounds. No palpable organomegaly was noted. There is no palpable pulsatile mass. SKIN: Skin is clear with no lesions or rashes and otherwise unremarkable. NEUROLOGIC: Patient is alert and oriented x3. Cranial nerves II through XII are grossly intact. Motor and sensory are also intact. Normal speech, volume and content. Symmetrical smile. MUSCULOSKELETAL: Normal extremities with adequate strength and full range of motion. LYMPHATICS: No significant lymphadenopathy is noted PSYCHIATRIC: Normal psychiatric evaluation. Limitations: no limitations Course Vital Signs 06/28/17 06/28/17 00:57 01:01 Temperature 97 F L Pulse Rate 66 71 Respiratory 20 20 Rate Blood Pressure 160/72 144/70 O2 Sat by Pulse 100 Oximetry Medical Decision Making - Medical Decision Making EKG shows normal sinus rhythm at 64 bpm OR interval 178 QRSs 72 QT interval 448 QTC is 462. Patient has some T-wave inversions in leads V1 through V4. Disposition Clinical Impression: Unstable angina pectoris, Hyponatremia Disposition: ADMITTED IP TO THIS [facility] Referrals: Thomas Ceballos MD [Primary Care Provider] - 1-2 days Time of Disposition: 01:30
[2017-06-28] MEDS ORDERED: HEPARIN SOD,PORK IN 0.45% NACL 25,000 UNIT in 0.45% NACL 1 500ML.BAG IV SCH (01:15)
[2017-06-28] MEDS ORDERED: NITROGLYCERIN SL TABS 0.4 MG TAB SUBLINGUAL PRN ×3 (01:31→11:51)
[2017-06-28 01:43] LABS: Creatine Kinase 31 U/L (30-135)
[2017-06-28 01:56] LABS: Creatine Kinase MB 1.1 ng/mL (0.0-2.4); Troponin I <0.012 ng/mL (0.000-0.034)
[2017-06-28 02:45] VITALS: BMI 25.7
[2017-06-28] MEDS ORDERED: NITROGLYCERIN OINT 1 INCH/GM PACKET TOPICAL SCH (06:00)
[2017-06-28 06:21] LABS: Creatine Kinase 26 U/L (30-135)
[2017-06-28 06:33] LABS: Creatine Kinase MB 1.1 ng/mL (0.0-2.4); Troponin I <0.012 ng/mL (0.000-0.034)
[2017-06-28] MEDS ORDERED: ASPIRIN 325 MG TAB PO STA (08:29)
[2017-06-28] MEDS ORDERED: ALPRAZolam 0.25 MG TAB PO PRN (08:29)
[2017-06-28] MEDS ORDERED: ATORVASTATIN 80 MG TAB PO STA (08:29)
[2017-06-28] MEDS ORDERED: ALPRAZolam 0.5 MG TAB PO PRN (08:29)
[2017-06-28] MEDS ORDERED: SODIUM CHLORIDE 0.9% 1,000 ML in EMPTY BAG 1 BAG IV ONE (08:29)
[2017-06-28] MEDS ORDERED: METOPROLOL TARTRATE 12.5 MG TAB PO SCH (09:00)
[2017-06-28] MEDS ORDERED: LEVOTHYROXINE 75 MCG TAB PO SCH (09:00)
[2017-06-28] MEDS ORDERED: CLOPIDOGREL 75 MG TAB PO SCH (09:00)
[2017-06-28 10:06] VITALS: TEMP 97.1
[2017-06-28] MEDS ORDERED: IV FLUID CONTINUATION 850 ML IV ONE (10:07)
[2017-06-28] MEDS ORDERED: MIDAZOLAM 2 MG/2 ML VIAL IV ONE (10:23)
[2017-06-28] MEDS ORDERED: LIDOCAINE 2% INJ 20 MG/ML SQ ONE (10:24)
--- NOTE | 2017-06-28 10:28 | CONS ---
CONSULTATION Mrs. Segundo is an 87-year-old female with known history of hyperlipidemia who presented 3 weeks ago with a STEMI and underwent cardiac catheterization by Dr. Chong and was found to have a critical stenosis in the LAD and underwent stenting of that vessel by Dr. Elma Hoang. Since her discharge, she has been feeling tired. She has complained of some chest discomfort and has taken nitroglycerin twice. Yesterday while sitting, she had an episode of chest discomfort, left-sided. She is not quite sure if this is the same pain she had at the time of her presentation 3 weeks ago. She took the first nitroglycerin and when she took the second nitroglycerin became unresponsive. She did not have full syncope, was breathing on her own and by the time the EMS came in, she was starting to come around. She is pain-free at this time and her only complaint is she is feeling tired with lack of energy. Prior to this event, she was quite active physically using her treadmill on a regular basis without any limitation. She denies any peripheral edema. No dizziness. No palpitation. No syncope. No clear PND, orthopnea. Her left ventricular systolic function by echocardiography during her last admission showed a mildly to moderately impaired systolic function. Her medications at the time of admission included aspirin, Plavix 75 mg daily, metoprolol tartrate 12.5 mg 3 times a day, lisinopril 5 mg daily and Lipitor 40 mg daily. REVIEW OF SYSTEMS: RESPIRATORY SYSTEM: She has no recent wheezing. No cough. No history of documented obstructive lung disease. GI SYSTEM: No recent GI bleed. No peptic ulcer disease. SYSTEM: No dysuria or hematuria. NERVOUS SYSTEM: No stroke or seizure. LAB DATA: Lab data revealed a troponin of less than 0.012. She had CAT scan of the head and showed no evidence of acute bleeding. Chest x-ray was unremarkable. Lab data revealed a creatinine of 0.8, potassium 4.2, sodium of 125. EKG showed a sinus mechanism with T-wave inversion anteriorly and from V1 to V4 with biphasic T-wave consistent with anterior wall ischemia. There was preserved R-wave. IMPRESSION: 1. Symptoms of chest discomfort of unclear etiology. No evidence to suggest acute myocardial infarction in a patient who has recently underwent stenting. 2. An episode of unresponsiveness, could be related to transient hypotension. 3. History of hyperlipidemia. 4. Ischemic cardiomyopathy. 5. Hyponatremia. RECOMMENDATION: From the cardiac standpoint, I would re-initiate her medical regimen. I will recommend to proceed with coronary angiography to assess her status and guide treatment. The rationale behind the procedure as well as the risks and complications were discussed with the patient and her family who are in full understanding and agreement. I will follow her sodium and depending on the progress, further recommendation will be made. The likelihood of acute stent thrombosis is quite low in view of the absence of new EKG changes and normal enzymes. Because of her recurrent chest pain, cardiac catheterization would be the best approach to evaluate her status. Thank you for this consult. We will follow with you. MARI / JCRALOSN: [id number] /
[2017-06-28] MEDS ORDERED: IOPAMIDOL-370 125ML BTL INJ ONE (10:36)
[2017-06-28] MEDS ORDERED: RX INFO: IV CONTRAST WAS GIVEN 1 EACH MISC MISCELLANE PRN (10:42)
[2017-06-28] MEDS ORDERED: ISOSORBIDE MONONITRATE ER 30 MG TAB.ER.24H PO SCH (10:45)
[2017-06-28] MEDS ORDERED: SODIUM CHLORIDE 0.9% 1,000 ML IV SCH (10:45)
--- NOTE | 2017-06-28 11:37 | CC ---
CARDIAC CATHETERIZATION REPORT INDICATION: Unstable angina in a patient with known CAD status post angioplasty of LAD in the setting of an acute myocardial infarction. PROCEDURE NOTE: After obtaining informed consent, left heart catheterization and coronary angiogram were performed via the left femoral artery using standard Reilly catheters. The patient tolerated the procedure well without any obvious immediate complications. Patient received moderate conscious sedation. Total sedation time was 17 minutes. The patient had right groin cath at last visit and had a Perclose device hence we opted for a manual hemostasis on the left side. FINDINGS: 1. HEMODYNAMICS: Left ventricular end-diastolic pressure is 16 to 18 mm. There is no significant gradient across the aortic valve. 2. LEFT VENTRICULOGRAM: Left ventriculogram is not performed. 3. ANGIOGRAPHIC DATA. Left main coronary artery: Left main coronary artery is a normal-sized vessel and is free of stenosis. Divides into left anterior descending coronary artery and circumflex coronary artery. Circumflex coronary artery and its branches are free of significant stenosis. Previously stented segment within the proximal LAD is patent. There is a diagonal branch that was jailed within the stent at the end of last angioplasty and it looks the same with very good flow within the diagonal. Right coronary artery is a large dominant vessel that shows a mild atherosclerotic plaque in the distal RCA before it bifurcates into PDA and PLV. This seems to be a 30% to 40% stenosis. CONCLUSIONS: Patent stent within the left anterior descending artery with a jailed diagonal branch noted on the previous cath. I reviewed angiographic data with Dr. Elma Hoang who performed her angioplasty last time and the plan at this stage is to continue with medical therapy. I am going to add nitrates to her regimen. MMODL / IJN: [id number] /
[2017-06-28] MEDS: LATANOPROST 0.005% OPHTH DROPS 2.5 ML BTL RIGHT EYE SCH ×2 (12:07→13:14)
--- NOTE | 2017-06-28 12:24 | P.HPIM ---
History of Present Illness His is a pleasant 87-year-old female came in with complaints of chest pain sensation mostly in the epigastric area sharp in nature 5/10 in severity nonradiating not associated diaphoresis nonpruritic in nature not associated with food. Any fever chills patient had a recent cardiac catheterization and stenting and patient took 1 nitroglycerin without any significant improvement, took a second one which the made her to have a syncopal episode loss of consciousness. Patient was seen in outside ER and was transferred here patient today underwent cardiac catheterization which did not show any significant new stent table atherosclerotic vascular disease and cardiology is recommending adding Imdur patient will be discharged later in the day. Patient is chest pain -free at this time and patient is discharged on Zantac patient is already on aspirin and Plavix at this time Review of Systems REVIEW OF SYSTEMS: CONSTITUTIONAL: No fever, no malaise, no fatigue. HEENT: No recent visual problems or hearing problems. Denied any sore throat. CARDIOVASCULAR: No orthopnea, PND, no palpitations, no syncope. PULMONARY: No shortness of breath, no cough, no hemoptysis. GASTROINTESTINAL: No diarrhea, no nausea, no vomiting, no abdominal pain. Normoactive bowel sounds. NEUROLOGICAL: No headaches, no weakness, no numbness. HEMATOLOGICAL: Denies any bleeding or petechiae. GENITOURINARY: Denies any burning micturition, frequency, or urgency. MUSCULOSKELETAL/RHEUMATOLOGICAL: Denies any joint pain, swelling, or any muscle pain. ENDOCRINE: Denies any polyuria or polydipsia. The rest of the 14-point review of systems is negative. Past Medical History Past Medical History: Eye Disorder, Myocardial Infarction ([place]), Thyroid Disorder Additional Past Medical History / Comment(s): glaucoma Last Myocardial Infarction Date:: 2017 History of Any Multi-Drug Resistant Organisms: None Reported Past Surgical History: Heart Catheterization With Stent Additional Past Surgical History / Comment(s): colonoscopy, cataracts, heart cath with stent placement to the LAD 06-06-17 Past Anesthesia/Blood Transfusion Reactions: No Reported Reaction Date of Last Stent Placement:: 2017 Past Psychological History: No Psychological Hx Reported Smoking Status: Never smoker Past Alcohol Use History: None Reported Past Drug Use History: None Reported - Past Family History Father Family Medical History: No Reported History Mother Family Medical History: No Reported History Medications and Allergies Home Medications Medication Instructions Recorded Confirmed Type Latanoprost [Xalatan 0.005%] 1 drop RIGHT EYE HS 06/06/17 06/28/17 History Levothyroxine Sodium [Synthroid] 150 mcg PO DAILY 06/06/17 06/28/17 History Timolol 0.5% Ophth Soln [Timoptic 2 drops BOTH EYES BID 06/06/17 06/28/17 History 0.5% Ophth Soln] Aspirin 81 mg PO DAILY #30 chew 06/09/17 06/28/17 Rx Atorvastatin [Lipitor] 40 mg PO HS #30 tab 06/09/17 06/28/17 Rx Clopidogrel [Plavix] 75 mg PO DAILY #30 tab 06/09/17 06/28/17 Rx Lisinopril [Zestril] 5 mg PO HS #30 tab 06/09/17 06/28/17 Rx Nitroglycerin Sl Tabs [Nitrostat] 0.4 mg SUBLINGUAL Q5M PRN #25 tab 06/09/17 Rx Calcium/Magnesium/Zinc 1 tab PO DAILY 06/28/17 06/28/17 History [Wzxqojo-Rpptdtjqq-Sxxf Tablet] Cholecalciferol [Vitamin D3] 1,000 unit PO DAILY 06/28/17 06/28/17 History Garlic 1 tab PO DAILY 06/28/17 06/28/17 History Metoprolol Tartrate [Metoprolol 12.5 mg PO TID 06/28/17 06/28/17 History Tartrate] Multivitamins, Thera [Multivitamin 1 tab PO DAILY 06/28/17 06/28/17 History (formulary)] [place]-3 Fatty Acids/Fish Oil [Fish 1 cap PO DAILY 06/28/17 06/28/17 History Oil 1,000 mg Softgel] Ranitidine HCl [Zantac] 150 mg PO BID #30 tab 06/28/17 Rx Ubidecarenone [Co Q-10] 100 mg PO DAILY 06/28/17 06/28/17 History Allergies Allergy/AdvReac Type Severity Reaction Status Date / Time No Known Allergies Allergy Verified 06/28/17 08:07 Physical Exam Vitals: Vital Signs Temp Pulse Pulse Resp BP BP Pulse Ox 06/28/17 11:12 70 18 139/71 99 06/28/17 10:57 65 17 136/70 100 06/28/17 10:42 18 138/71 100 06/28/17 08:00 97.1 F L 70 18 131/76 97 06/28/17 04:00 97.6 F 72 15 124/61 96 06/28/17 02:10 97.7 F 64 18 150/70 100 06/28/17 01:42 97.1 F L 71 16 152/78 98 06/28/17 01:01 71 20 144/70 100 06/28/17 00:57 97 F L 66 20 160/72 Intake and Output 06/27/17 06/28/17 06/28/17 22:59 06:59 14:59 Intake Total 86.13 50 Balance 86.13 50 Intake: IV 50 Intake, IV Titration 86.13 Amount Heparin Sod,Pork in 0.45% 86.13 NaCl 25,000 unit In 0.45 % NaCl 1 500ml.bag @ 12 UNITS/KG/HR 15.95 mls/hr IV .Q24H [facility] Rx#: [id number] Other: Voiding Method Toilet # Voids 2 Weight 67.9 kg PHYSICAL EXAMINATION: GENERAL: The patient is alert and oriented x3, not in any acute distress. Well developed, well nourished. HEENT: Pupils are round and equally reacting to light. EOMI. No scleral icterus. No conjunctival pallor. Normocephalic, atraumatic. No pharyngeal erythema. No thyromegaly. CARDIOVASCULAR: S1 and S2 present. No murmurs, rubs, or gallops. PULMONARY: Chest is clear to auscultation, no wheezing or crackles. ABDOMEN: Soft, nontender, nondistended, normoactive bowel sounds. No palpable organomegaly. MUSCULOSKELETAL: No joint swelling or deformity. EXTREMITIES: No cyanosis, clubbing, or pedal edema. NEUROLOGICAL: Gross neurological examination did not reveal any focal deficits. SKIN: No rashes. Results Labs: Abnormal Lab Results - Last 24 Hours (Table) 06/28/17 06/28/17 Range/Units 05:46 05:46 APTT 50.8 H (22.0-30.0) sec Total Creatine Kinase 26 L (30-135) U/L Thrombosis Risk Factor Assmnt - Choose All That Apply Any of the Below Risk Factors Present?: Yes Each Factor Represents 1 point: Acute [place] Other Risk Factors: Yes Each Risk Factor Represents 3 Points: Age 75 years or older Thrombosis Risk Factor Assessment Total Risk Factor Score: 4 Thrombosis Risk Factor Assessment Level: Moderate Risk Assessment and Plan Plan: -Chest pain: Etiology is unclear may be gastroesophageal reflux disease patient underwent cardiac catheterization and results of which are as mentioned above patient probably can be discharged today if cleared by cardiology cardiology will do the medication reconciliation regarding the cardiac meds. -For that is -Hyperlipidemia -Hypertension X For above-mentioned chronic medical problems patient will be resumed and continued on home medications. Patient will be discharged today.
--- NOTE | 2017-06-28 12:25 | P.DS ---
Providers Date of admission: 06/28/17 01:33 Attending physician: Keyonna Parrish Consults: 06/28/17 01:31 Consult Physician Urgent Consulting Provider: [facility] Consult Reason/Comments: Unstable angina Do you want consulting provider notified?: Yes Primary care physician: Thomas Ceballos MD Hospital Course: Please refer to my HPI Plan - Discharge Summary Discharge Rx Participant: Yes New Discharge Prescriptions: New Ranitidine HCl [Zantac] 150 mg PO BID #30 tab No Action Timolol 0.5% Ophth Soln [Timoptic 0.5% Ophth Soln] 2 drops BOTH EYES BID Levothyroxine Sodium [Synthroid] 150 mcg PO DAILY Latanoprost [Xalatan 0.005%] 1 drop RIGHT EYE HS Aspirin 81 mg PO DAILY #30 chew Atorvastatin [Lipitor] 40 mg PO HS #30 tab Clopidogrel [Plavix] 75 mg PO DAILY #30 tab Lisinopril [Zestril] 5 mg PO HS #30 tab Nitroglycerin Sl Tabs [Nitrostat] 0.4 mg SUBLINGUAL Q5M PRN #25 tab PRN Reason: Chest Pain [place]-3 Fatty Acids/Fish Oil [Fish Oil 1,000 mg Softgel] 1 cap PO DAILY Multivitamins, Thera [Multivitamin (formulary)] 1 tab PO DAILY Garlic 1 tab PO DAILY Cholecalciferol [Vitamin D3] 1,000 unit PO DAILY Ubidecarenone [Co Q-10] 100 mg PO DAILY Metoprolol Tartrate [Metoprolol Tartrate] 12.5 mg PO TID Calcium/Magnesium/Zinc [Enxfksl-Efnjnityo-Kiym Tablet] 1 tab PO DAILY Discharge Medication List Latanoprost [Xalatan 0.005%] 1 drop RIGHT EYE HS 06/06/17 [History] Levothyroxine Sodium [Synthroid] 150 mcg PO DAILY 06/06/17 [History] Timolol 0.5% Ophth Soln [Timoptic 0.5% Ophth Soln] 2 drops BOTH EYES BID [History] Aspirin 81 mg PO DAILY #30 chew 06/09/17 [Rx] Atorvastatin [Lipitor] 40 mg PO HS #30 tab 06/09/17 [Rx] Clopidogrel [Plavix] 75 mg PO DAILY #30 tab 06/09/17 [Rx] Lisinopril [Zestril] 5 mg PO HS #30 tab 06/09/17 [Rx] Nitroglycerin Sl Tabs [Nitrostat] 0.4 mg SUBLINGUAL Q5M PRN #25 tab 06/09/17 [Rx ] Calcium/Magnesium/Zinc [Ylzqusk-Unkyszyai-Olcb Tablet] 1 tab PO DAILY 06/28/17 [ History] Cholecalciferol [Vitamin D3] 1,000 unit PO DAILY 06/28/17 [History] Garlic 1 tab PO DAILY 06/28/17 [History] Metoprolol Tartrate [Metoprolol Tartrate] 12.5 mg PO TID 06/28/17 [History] Multivitamins, Thera [Multivitamin (formulary)] 1 tab PO DAILY 06/28/17 [History ] [place]-3 Fatty Acids/Fish Oil [Fish Oil 1,000 mg Softgel] 1 cap PO DAILY [History] Ranitidine HCl [Zantac] 150 mg PO BID #30 tab 06/28/17 [Rx] Ubidecarenone [Co Q-10] 100 mg PO DAILY 06/28/17 [History] Follow up Appointment(s)/Referral(s): Thomas Ceballos MD [Primary Care Provider] - 3 Days Discharge Disposition: HOME SELF-CARE
[2017-06-28 13:02] LABS: Creatine Kinase MB 0.9 ng/mL (0.0-2.4); Troponin I 0.015 ng/mL (0.000-0.034)
[2017-06-28 17:44] VITALS: BP 104/68; PULSE 71; RESP 17
[2017-06-28] MEDS ORDERED: LISINOPRIL 5 MG TAB PO SCH (21:00)
[2017-06-28] MEDS ORDERED: TIMOLOL 0.5% OPHTH DROPS 5 ML BTL BOTH EYES SCH (21:00)
[2017-06-28] MEDS ORDERED: ATORVASTATIN 40 MG TAB PO SCH (21:00)
[2017-06-29] MEDS ORDERED: ASPIRIN 325 MG TAB PO SCH (09:00)
[2017-06-29] MEDS ORDERED: ASPIRIN 81 MG PO SCH (09:00)
== END 2017-06-28 18:18 | disposition home or self-care (01) ==
LOC: EC 00:54 → 6SEL 01:33
PROVIDERS: ADMIT Hospitalist; ATTEND Hospitalist
DX: R07.89 Other chest pain (principal); R53.83 Other fatigue; R10.13 Epigastric pain; Z95.5 Presence of coronary angioplasty implant and graft; E87.1 Hypo-osmolality and hyponatremia; E78.5 Hyperlipidemia, unspecified; I10 Essential (primary) hypertension; I25.10 Atherosclerotic heart disease of native coronary artery without angina pectoris; I21.3 ST elevation (STEMI) myocardial infarction of unspecified site; I25.5 Ischemic cardiomyopathy; R55 Syncope and collapse; H40.9 Unspecified glaucoma; E07.9 Disorder of thyroid, unspecified; Z79.890 Hormone replacement therapy; Z79.899 Other long term (current) drug therapy; Z79.82 Long term (current) use of aspirin; Z79.02 Long term (current) use of antithrombotics/antiplatelets
CPT/HCPCS: 99285 ×2; 96365 ×2; 96376 ×2; 36415; 93005; 93458; 82550; 82553; 84484; 85730; G0378; C1894; C1769; J2001; J2250; J1644 ×2; Q9967

== ENCOUNTER 2017-07-10 17:08 | Inpatient (IN) | payer MEDICARE, OTHER ==
--- NOTE | 2017-07-10 17:33 | ED ---
Chest Pain HPI - General Chief Complaint: Chest Pain Stated Complaint: Chest Pain Time Seen by Provider: 07/10/17 17:08 Source: patient, EMS, RN notes reviewed, old records reviewed Mode of arrival: EMS Limitations: no limitations - History of Present Illness Initial Comments: This 87-year-old female who was transferred from [facility] after being treated for chest pain. She apparently has been in this facility for recently evaluation of chest pain she did have a stent placement recently. She had recurrent pain this started this morning. She currently is pain-free she had initial workup done there but he is more complete workup with higher level of care. She states the pain is well 5/10. Also of note patient was noted have a sodium of 119. She does have chronically low sodium MD Complaint: chest pain - Related Data Home Medications Medication Instructions Recorded Confirmed Latanoprost [Xalatan 0.005%] 1 drop RIGHT EYE HS 06/06/17 06/28/17 Levothyroxine Sodium [Synthroid] 150 mcg PO DAILY 06/06/17 06/28/17 Timolol 0.5% Ophth Soln [Timoptic 2 drops BOTH EYES BID 06/06/17 06/28/17 0.5% Ophth Soln] Calcium/Magnesium/Zinc 1 tab PO DAILY 06/28/17 06/28/17 [Neshyay-Fpecqvmdq-Ilpw Tablet] Cholecalciferol [Vitamin D3] 1,000 unit PO DAILY 06/28/17 06/28/17 Garlic 1 tab PO DAILY 06/28/17 06/28/17 Metoprolol Tartrate [Metoprolol 12.5 mg PO TID 06/28/17 06/28/17 Tartrate] Multivitamins, Thera [Multivitamin 1 tab PO DAILY 06/28/17 06/28/17 (formulary)] [place]-3 Fatty Acids/Fish Oil [Fish 1 cap PO DAILY 06/28/17 06/28/17 Oil 1,000 mg Softgel] Ubidecarenone [Co Q-10] 100 mg PO DAILY 06/28/17 06/28/17 Isosorbide Mononitrate ER [Imdur] 30 mg PO DAILY 07/10/17 07/10/17 Previous Rx's Medication Instructions Recorded Aspirin 81 mg PO DAILY #30 chew 06/09/17 Atorvastatin [Lipitor] 40 mg PO HS #30 tab 06/09/17 Clopidogrel [Plavix] 75 mg PO DAILY #30 tab 06/09/17 Lisinopril [Zestril] 5 mg PO HS #30 tab 06/09/17 Nitroglycerin Sl Tabs [Nitrostat] 0.4 mg SUBLINGUAL Q5M PRN #25 tab 06/09/17 Isosorbide Mononitrate ER [Imdur] 30 mg PO DAILY #30 tab 06/28/17 Ranitidine HCl [Zantac] 150 mg PO BID #30 tab 06/28/17 Allergies Allergy/AdvReac Type Severity Reaction Status Date / Time No Known Allergies Allergy Verified 06/28/17 08:07 Review of Systems ROS Statement: Those systems with pertinent positive or pertinent negative responses have been documented in the HPI. ROS Other: All systems not noted in ROS Statement are negative. EKG Findings - EKG Results: EKG: interpreted by FAY, sinus rhythm (Sinus rhythm rate is 62 UT interval 168 QRS 76 QT since QTC of 442/448 st-t wave changes as compared to an EKG from the other facility showing no changes at this time) Past Medical History Past Medical History: Eye Disorder, Myocardial Infarction ([place]), Thyroid Disorder Additional Past Medical History / Comment(s): glaucoma Last Myocardial Infarction Date:: 2017 History of Any Multi-Drug Resistant Organisms: None Reported Past Surgical History: Heart Catheterization With Stent Additional Past Surgical History / Comment(s): colonoscopy, cataracts, heart cath with stent placement to the LAD 06-06-17 Past Anesthesia/Blood Transfusion Reactions: No Reported Reaction Date of Last Stent Placement:: 2017 Past Psychological History: No Psychological Hx Reported Smoking Status: Never smoker Past Alcohol Use History: None Reported Past Drug Use History: None Reported - Past Family History Father Family Medical History: No Reported History Mother Family Medical History: No Reported History General Exam - General Exam Comments Initial Comments: This is a well-developed well-nourished awake alert oriented 3 female Limitations: no limitations General appearance: alert, in no apparent distress Head exam: Present: atraumatic, normocephalic, normal inspection Eye exam: Present: normal appearance, PERRL, EOMI. Absent: scleral icterus, conjunctival injection, periorbital swelling ENT exam: Present: normal exam, mucous membranes moist Neck exam: Present: normal inspection. Absent: tenderness, meningismus, lymphadenopathy Respiratory exam: Present: normal lung sounds bilaterally. Absent: respiratory distress, wheezes, rales, rhonchi, stridor Cardiovascular Exam: Present: regular rate, normal rhythm, normal heart sounds. Absent: systolic murmur, diastolic murmur, rubs, gallop, clicks GI/Abdominal exam: Present: soft, normal bowel sounds. Absent: distended, tenderness, guarding, rebound, rigid Extremities exam: Present: normal inspection, full ROM, normal capillary refill. Absent: tenderness, pedal edema, joint swelling, calf tenderness Back exam: Present: normal inspection Neurological exam: Present: alert, oriented X3, CN II-XII intact Psychiatric exam: Present: normal affect, normal mood Skin exam: Present: warm, dry, intact, normal color. Absent: rash Course Vital Signs 07/10/17 07/10/17 17:09 18:14 Temperature 97.1 F L Pulse Rate 62 66 Respiratory 16 16 Rate Blood Pressure 173/79 138/65 O2 Sat by Pulse 100 100 Oximetry Chest Pain MDM - MDM The patient remained pain-free disseminated discuss findings with her and with the admitting physician patient will be admitted I did review the materials presented from the sending facility. Disposition Clinical Impression: Unstable angina, Chest pain Disposition: ADMITTED IP TO THIS HOSP Condition: Stable Referrals: Thomas Ceballos MD [Primary Care Provider] - 1-2 days
[2017-07-10] MEDS ORDERED: ONDANSETRON 4 MG/2 ML VIAL IVP STA (19:02)
[2017-07-10] MEDS ORDERED: HEPARIN SODIUM,PORCINE 5,000 UNIT/ML 1 ML VIAL IV ONE (19:26)
[2017-07-10] MEDS ORDERED: HEPARIN SOD,PORK IN 0.45% NACL 25,000 UNIT in 0.45% NACL 1 500ML.BAG IV SCH (19:30)
[2017-07-10] MEDS: SODIUM CHLORIDE 0.9% 1,000 ML IV SCH (19:56)
[2017-07-10] MEDS ORDERED: LATANOPROST 0.005% OPHTH DROPS 2.5 ML BTL RIGHT EYE SCH (21:00)
[2017-07-10] MEDS: TIMOLOL 0.5% OPHTH DROPS 5 ML BTL BOTH EYES SCH (21:16)
[2017-07-10] MEDS: METOPROLOL TARTRATE 12.5 MG TAB PO SCH (21:17)
[2017-07-10] MEDS: FAMOTIDINE 20 MG TAB PO SCH (21:17)
[2017-07-10] MEDS: LISINOPRIL 5 MG TAB PO SCH (21:17)
[2017-07-10] MEDS ORDERED: hydrALAZINE HCL 25 MG TAB PO PRN (22:53)
[2017-07-11] MEDS ORDERED: NITROGLYCERIN OINT 1 INCH/GM PACKET TOPICAL SCH
[2017-07-11 00:16] LABS: Creatine Kinase 32 U/L (30-135)
[2017-07-11 00:28] LABS: Creatine Kinase MB 1.4 ng/mL (0.0-2.4); Troponin I <0.012 ng/mL (0.000-0.034)
[2017-07-11] MEDS: LEVOTHYROXINE 75 MCG TAB PO SCH (06:27)
[2017-07-11 07:04] LABS: Cholesterol 141 mg/dL (<200); HDL Cholesterol 70 mg/dL (40-60); LDL Cholesterol,Calculated 56 mg/dL (0-99); Triglycerides 75 mg/dL (<150)
[2017-07-11 07:34] LABS: Creatine Kinase 36 U/L (30-135)
[2017-07-11 07:45] LABS: Creatine Kinase MB 1.4 ng/mL (0.0-2.4); Troponin I <0.012 ng/mL (0.000-0.034)
[2017-07-11] MEDS: LATANOPROST 0.005% OPHTH DROPS 2.5 ML BTL RIGHT EYE SCH (08:02)
[2017-07-11] MEDS: TIMOLOL 0.5% OPHTH DROPS 5 ML BTL BOTH EYES SCH ×2 (08:02→19:54)
[2017-07-11] MEDS ORDERED: ASPIRIN 325 MG TAB PO SCH (09:00)
[2017-07-11] MEDS ORDERED: NON-FORMULARY DRUG (Omega-3 Fatty Acids/Fish Oil [Fish Oil 1,000 Mg Softgel] 1 CAP) PO SCH (09:00)
[2017-07-11] MEDS: CLOPIDOGREL 75 MG TAB PO SCH (10:47)
[2017-07-11] MEDS: NON-FORMULARY DRUG (Ubidecarenone [Co Q-10] 100 MG) PO SCH (10:47)
[2017-07-11] MEDS: FAMOTIDINE 20 MG TAB PO SCH ×2 (10:47→19:54)
[2017-07-11] MEDS: METOPROLOL TARTRATE 12.5 MG TAB PO SCH (10:48)
[2017-07-11] MEDS: ISOSORBIDE MONONITRATE ER 30 MG TAB.ER.24H PO SCH (11:22)
--- NOTE | 2017-07-11 11:27 | P.CRDCN ---
History of Present Illness Consult date: 07/11/17 Requesting physician: Romulo Amos Consult reason: chest pain Chief complaint: Chest pain History of present illness: This is an 87-year-old female with history of hypertension, hyperlipidemia, who presented to the hospital with a non-ST elevation myocardial infarction on June 06, she was transferred here from [facility], on arrival to our emergency room patient again had chest pain and was found to have acute ST segment elevation from V1 to V6 so she was taken to the cardiac catheterization lab by Dr. Chong. Cardiac catheterization revealed a 99 % focal stenosis in the LAD so the patient subsequently underwent angioplasty and stenting of that vessel by Dr. Gabo Hoang. Her echocardiogram with Doppler study performed on that admission revealed an ejection fraction of 45-50% with anterior apical hypokinesia noted. Patient returned to the hospital on June 28 with chest discomfort similar to what she had in May, she was seen in consultation by Dr. Casillas and recommended to undergo a repeat cardiac catheterization. Cardiac catheterization at that time revealed a patent stent within the LAD with a jailed diagonal branch noted on previous. Angiographic data was reviewed with Dr. Gabo Hoang in maximum medical therapy was advised. Nitrates were added to the patient's medication regime. According to the patient, since the time of her initial MN she has been progressively more weak and short of breath. She presents to the hospital again on this occasion with symptoms of recurrent chest discomfort. Patient states that she feels a discomfort right in the center of her chest in the upper epigastric region when I asked her if it similar to what she had at the time of her MN she states she is not sure. Patient did take aspirin at the time of her chest pain, she did not take a nitroglycerin because apparently the last time she took nitro she passed out. EKG performed at [facility] showed a normal sinus rhythm with biphasic T waves in the anterior leads. EKG on arrival here showed similar changes with mild progression of changes noted on repeat EKG. Let pressure 162/70 with a heart rate in the 60s, 100% on room air. Troponins have been negative 3. Chest x-ray performed there was normal BUN 16, creatinine 0.7 , sodium 119 potassium 4.8, magnesium 2.0 troponin 0.01 TSH 2.6 white blood cell count 6.7 hemoglobin 11.7, hematocrit 34.1 and platelet [id number]. At the time of my examination this morning, she is currently chest pain-free. She is extremely anxious and concerned about the fact that she feels so weak. Her son is at bedside. Past Medical History Past Medical History: Eye Disorder, Myocardial Infarction ([place]), Thyroid Disorder Additional Past Medical History / Comment(s): glaucoma Last Myocardial Infarction Date:: 2017 History of Any Multi-Drug Resistant Organisms: None Reported Past Surgical History: Heart Catheterization With Stent Additional Past Surgical History / Comment(s): colonoscopy, cataracts, heart cath with stent placement to the LAD 06-06-17 Past Anesthesia/Blood Transfusion Reactions: No Reported Reaction Date of Last Stent Placement:: 2017 Past Psychological History: No Psychological Hx Reported Smoking Status: Never smoker Past Alcohol Use History: None Reported Past Drug Use History: None Reported - Past Family History Father Family Medical History: No Reported History Mother Family Medical History: No Reported History Medications and Allergies Home Medications Medication Instructions Recorded Confirmed Type Latanoprost [Xalatan 0.005%] 1 drop RIGHT EYE HS 06/06/17 07/10/17 History Levothyroxine Sodium [Synthroid] 150 mcg PO DAILY 06/06/17 07/10/17 History Timolol 0.5% Ophth Soln [Timoptic 2 drops BOTH EYES BID 06/06/17 07/10/17 History 0.5% Ophth Soln] Aspirin 81 mg PO DAILY #30 chew 06/09/17 07/10/17 Rx Atorvastatin [Lipitor] 40 mg PO HS #30 tab 06/09/17 07/10/17 Rx Lisinopril [Zestril] 5 mg PO HS #30 tab 06/09/17 07/10/17 Rx Metoprolol Tartrate [Metoprolol 12.5 mg PO TID 06/28/17 07/10/17 History Tartrate] Isosorbide Mononitrate ER [Imdur] 30 mg PO DAILY 07/10/17 07/10/17 History Allergies Allergy/AdvReac Type Severity Reaction Status Date / Time No Known Allergies Allergy Verified 06/28/17 08:07 Physical Exam Vitals: Vital Signs Temp Pulse Pulse Resp BP BP BP 07/11/17 08:04 97.6 F 67 16 162/73 07/11/17 04:00 96.8 F L 66 18 147/70 07/11/17 00:00 96.9 F L 68 18 146/67 07/10/17 22:12 151/79 152/71 07/10/17 20:57 97.4 F L 74 16 174/81 07/10/17 18:14 66 16 138/65 07/10/17 17:09 97.1 F L 62 16 173/79 Pulse Ox 07/11/17 08:04 100 07/11/17 04:00 100 07/11/17 00:00 97 07/10/17 22:12 98 07/10/17 20:57 98 07/10/17 18:14 100 07/10/17 17:09 100 Intake and Output 07/10/17 07/11/17 07/11/17 22:59 06:59 14:59 Intake Total 102.879 Output Total 300 Balance -197.121 Intake: Intake, IV Titration 102.879 Amount Heparin Sod,Pork in 0.45% 102.879 NaCl 25,000 unit In 0.45 % NaCl 1 500ml.bag @ 12 UNITS/KG/HR 14.91 mls/hr IV .Q24H [facility] Rx#: [id number] Output: Urine 300 Other: Weight 62.142 kg 66.7 kg PHYSICAL EXAMINATION: HEENT: Head is atraumatic, normocephalic. Pupils equal, round. Neck is supple. There is no elevated jugular venous pressure. HEART EXAMINATION: Heart S1 and S2 with soft systolic murmur is heard. CHEST EXAMINATION: Lungs are clear to auscultation and precussion. No chest wall tenderness is noted on palpation or with deep breathing. ABDOMEN: Soft, nontender. Bowel sounds are heard. No organomegaly noted. EXTREMITIES: 2+ peripheral pulses with no evidence of peripheral edema and no calf tenderness noted. NEUROLOGIC patient is awake, alert and oriented -3. . Results Cardiac Enzymes 07/10/17 07/10/17 07/11/17 Range/Units 17:39 23:38 06:10 CK-MB (CK-2) 1.4 1.4 (0.0-2.4) ng/mL Troponin I <0.012 <0.012 <0.012 (0.000-0.034) ng/mL Coagulation 07/11/17 07/11/17 Range/Units 02:20 08:23 APTT 46.1 H 52.6 H (22.0-30.0) sec Lipids 07/11/17 Range/Units 06:10 Triglycerides 75 (<150) mg/dL Cholesterol 141 (<200) mg/dL HDL Cholesterol 70 H (40-60) mg/dL Current Medications Generic Name Dose Route Start Last Admin Trade Name Freq PRN Reason Stop Dose Admin Aspirin 325 mg 07/11/17 09:00 07/11/17 10:48 Aspirin PO 325 mg DAILY [facility] Administration Atorvastatin Calcium 40 mg 07/11/17 21:00 Lipitor PO HS [facility] Clopidogrel Bisulfate 75 mg 07/11/17 09:00 07/11/17 10:47 Plavix PO 75 mg DAILY [facility] Administration Famotidine 20 mg 07/10/17 21:00 07/11/17 10:47 Pepcid PO 20 mg BID [facility] Administration Hydralazine HCl 25 mg 07/10/17 22:53 Apresoline PO Q8H PRN Hypertension Heparin Sodium/Sodium Chloride 500 mls @ 14.91 mls/hr 07/10/17 19:30 02:51 25,000 unit/ Sodium Chloride IV 14 units/kg/hr .Q24H [facility] 17.39 mls/hr Protocol Titration 12 UNITS/KG/HR Sodium Chloride 1,000 mls @ 20 mls/hr 07/10/17 19:30 07/10/17 19:56 Saline 0.9% IV 20 mls/hr .Q24H [facility] Administration Isosorbide Mononitrate 30 mg 07/11/17 09:00 Imdur PO DAILY [facility] Latanoprost 1 drops 07/11/17 09:00 07/11/17 08:02 Xalatan 0.005% RIGHT EYE 1 drops DAILY [facility] Administration Levothyroxine Sodium 150 mcg 07/11/17 06:30 07/11/17 06:27 Synthroid PO 150 mcg DAILY@0630 [facility] Administration Lisinopril 5 mg 07/10/17 21:00 07/10/17 21:17 Zestril PO 5 mg HS [facility] Administration Metoprolol Tartrate 12.5 mg 07/10/17 22:00 07/11/17 10:48 Lopressor PO 12.5 mg TID [facility] Administration Nitroglycerin 0.4 mg 07/10/17 19:26 Nitrostat SUBLINGUAL Q5M PRN Chest Pain Non-Formulary Medication 100 mg 07/11/17 09:00 07/11/17 10:47 Ubidecarenone [Co Q-10] PO Not Given DAILY [facility] Timolol Maleate 2 drops 07/10/17 21:00 07/11/17 08:02 Timoptic BOTH EYES 2 drops BID [facility] Administration Intake and Output 07/10/17 07/11/17 07/11/17 22:59 06:59 14:59 Intake Total 102.879 Output Total 300 Balance -197.121 Intake: Intake, IV Titration 102.879 Amount Heparin Sod,Pork in 0.45% 102.879 NaCl 25,000 unit In 0.45 % NaCl 1 500ml.bag @ 12 UNITS/KG/HR 14.91 mls/hr IV .Q24H [facility] Rx#: [id number] Output: Urine 300 Other: Weight 62.142 kg 66.7 kg EKG Interpretations (text) EKG shows normal sinus rhythm with evidence of biphasic T-wave changes in the anterior leads. Assessment and Plan Plan: Assessment and plan #1 chest pain with some atypical features for acute coronary syndrome. Troponins are negative 2. Her EKG shows normal sinus rhythm with biphasic ST- T wave changes in the anterior leads. #[address] elevation anterior wall myocardial infarction with stenting of the LAD. Patient underwent a cardiac catheterization which revealed a patent stent in the LAD, there is a diagonal branch that was jailed within the stent at the end of the last angioplasty and it looked as same with good flow within the diag. Medical therapy advised. #3 symptoms of progressive tiredness and weakness could be secondary to hyponatremia. Sodium 119 at [facility] #4 hypertension #5 hyperlipidemia Plan We will decrease the patient's aspirin 81 mg daily, resume the Lipitor 40 mg daily, continue Plavix, continue Imdur, lisinopril, metoprolol. We will repeat an echocardiogram with Doppler study, the echo performed at the time of her stent revealed an ejection fraction of 40-45% with apical anterior wall motion hypokinesia noted at that time. Treat hyponatremia. Further recommendations to follow. DNP note has been reviewed, I agree with a documented findings and plan of care. Patient was seen and examined.
[2017-07-11 13:05] LABS: Anion Gap 11 mmol/L; Blood Urea Nitrogen 13 mg/dL (7-17); Calcium 9.1 mg/dL (8.4-10.2); Carbon Dioxide 21 mmol/L (22-30); Chloride 98 mmol/L (98-107); Glucose 107 mg/dL (74-99); Potassium 4.4 mmol/L (3.5-5.1); Sodium 130 mmol/L (137-145)
[2017-07-11] MEDS ORDERED: TEMAZEPAM 15 MG CAP PO PRN (15:10)
[2017-07-11] MEDS: SODIUM CHLORIDE 0.9% 1,000 ML IV SCH (16:03)
[2017-07-11] MEDS: METOPROLOL TARTRATE 25 MG TAB PO SCH ×2 (16:12→22:26)
[2017-07-11] MEDS: LISINOPRIL 5 MG TAB PO SCH (19:54)
[2017-07-11] MEDS: ATORVASTATIN 40 MG TAB PO SCH (19:54)
[2017-07-11] MEDS: HEPARIN SODIUM,PORCINE 5,000 UNIT/ML 1 ML VIAL SQ SCH (23:55)
[2017-07-12] MEDS: LEVOTHYROXINE 75 MCG TAB PO SCH (06:30)
[2017-07-12 06:36] LABS: Basophils % (A) 1 %; Eosinophils # (A) 0.3 k/uL (0-0.7); Eosinophils % (A) 5 %; HCT 31.9 % (34.0-46.0); HGB 10.7 gm/dL (11.4-16.0); Lymphocytes # (A) 1.2 k/uL (1.0-4.8); Lymphocytes % (A) 19 %; MCH 28.9 pg (25.0-35.0); MCHC 33.6 g/dL (31.0-37.0); Mean Platelet Volume 6.3; Monocytes # (A) 0.3 k/uL (0-1.0); Monocytes % (A) 4 %; Neutrophils # (A) 4.4 k/uL (1.3-7.7); Neutrophils % (A) 70 %; Platelet Count 266 k/uL (150-450); RDW 14.6 % (11.5-15.5); WBC 6.4 k/uL (3.8-10.6)
[2017-07-12 06:53] LABS: ALT 33 U/L (9-52); AST 25 U/L (14-36); Albumin 3.5 g/dL (3.5-5.0); Alkaline Phosphatase 150 U/L (38-126); Anion Gap 11 mmol/L; Blood Urea Nitrogen 19 mg/dL (7-17); Calcium 9.1 mg/dL (8.4-10.2); Carbon Dioxide 22 mmol/L (22-30); Chloride 95 mmol/L (98-107); Glucose 110 mg/dL (74-99); Potassium 4.9 mmol/L (3.5-5.1); Sodium 128 mmol/L (137-145); Total Bilirubin 0.3 mg/dL (0.2-1.3); Total Protein 6.4 g/dL (6.3-8.2)
[2017-07-12] MEDS: LATANOPROST 0.005% OPHTH DROPS 2.5 ML BTL RIGHT EYE SCH (08:38)
[2017-07-12] MEDS: ASPIRIN 81 MG PO SCH (08:39)
[2017-07-12] MEDS: HEPARIN SODIUM,PORCINE 5,000 UNIT/ML 1 ML VIAL SQ SCH ×3 (08:39→23:18)
[2017-07-12] MEDS: CLOPIDOGREL 75 MG TAB PO SCH (08:39)
[2017-07-12] MEDS: NON-FORMULARY DRUG (Ubidecarenone [Co Q-10] 100 MG) PO SCH (08:39)
[2017-07-12] MEDS: ISOSORBIDE MONONITRATE ER 30 MG TAB.ER.24H PO SCH (08:40)
[2017-07-12] MEDS: TIMOLOL 0.5% OPHTH DROPS 5 ML BTL BOTH EYES SCH ×2 (08:40→21:01)
[2017-07-12] MEDS: METOPROLOL TARTRATE 25 MG TAB PO SCH ×3 (08:40→21:01)
[2017-07-12] MEDS: FAMOTIDINE 20 MG TAB PO SCH ×2 (08:40→21:01)
--- NOTE | 2017-07-12 11:28 | ECHOF ---
Referral Reason:chest pain MEASUREMENTS -------- HEIGHT: 162.6 cm WEIGHT: 65.8 kg BP: IVSd: 1.1 cm (0.6 - 1.1) LVIDd: 3.6 cm (3.9 - 5.3) LVPWd: 1.1 cm (0.6 - 1.1) IVSs: 1.5 cm LVIDs: 2.5 cm LVPWs: 1.6 cm LA Diam: 3.5 cm (2.7 - 3.8) LAESV Index (A-L): 31.33 ml/m Ao Diam: 2.9 cm (2.0 - 3.7) AV Cusp: 1.7 cm (1.5 - 2.6) LA Diam: 3.2 cm (2.7 - 3.8) MV EXCURSION: 13.970 mm (> 18.000) MV EF SLOPE: 58 mm/s (70 - 150) EPSS: 0.5 cm MV E Sabino: 0.52 m/s MV DecT: 323 ms MV A Sabino: 1.01 m/s MV E/A Ratio: 0.51 RAP: 5.00 mmHg RVSP: 28.81 mmHg FINDINGS -------- Sinus rhythm. This was a technically good study. The left ventricular size is normal. There is mild concentric left ventricular hypertrophy. Overa ll left ventricular systolic function is low-normal with, an EF between 50 - 55 %. The right ventricle is normal in size. The left atrium is mildly dilated. LA is moderately dilated 34-39 ml/m2 The right atrial size is normal. The aortic valve is trileaflet, and appears structurally normal. No aortic stenosis or regurgitation. Mild mitral annular calcification present. Xrrd-gv-imtusmei mitral regurgitation is present. Mild tricuspid regurgitation present. There is mild pulmonary hypertension. The right ventricular systolic pressure, as measured by Doppler, is 28.81mmHg. There is no pulmonic regurgitation present. The aortic root size is normal. There is no pericardial effusion. CONCLUSIONS -------- 1. The left ventricular size is normal. 2. There is mild concentric left ventricular hypertrophy. 3. Overall left ventricular systolic function is low-normal with, an EF between 50 - 55 %. 4. The left atrium is mildly dilated. 5. LA is moderately dilated 34-39 ml/m2 6. The aortic valve is trileaflet, and appears structurally normal. No aortic stenosis or regurgitati on. 7. Mild mitral annular calcification present. 8. Gytq-ns-exlelyjx mitral regurgitation is present. 9. Mild tricuspid regurgitation present. 10. There is mild pulmonary hypertension. 11. The right ventricular systolic pressure, as measured by Doppler, is 28.81mmHg. 12. There is no pulmonic regurgitation present. 13. The aortic root size is normal. 14. There is no pericardial effusion. BLOOD BANK LABORATORY TECHNICIAN: Monisha Baxter RDCS
[2017-07-12 13:38] VITALS: BMI 25.0
[2017-07-12] MEDS ORDERED: SODIUM CHLORIDE 0.9% 1,000 ML IV SCH (13:45)
--- NOTE | 2017-07-12 14:25 | P.PN ---
Subjective Progress Note Date: 07/12/17 Principal diagnosis: Chest pain transferred from [facility] Ms. Segundo is an 87-year-old female with a past medical history of hypertension, thyroid disorder, recent WI status post stenting transferred from [facility] after being treated for chest pain. Patient had a NSTEMI on June 06- she is status post angioplasty and stenting of LAD. Patient had an echo showing EF of 45-50% with anterior wall hypokinesia. Patient was again admitted on June 28 for chest acute discomfort and she had a cardiac catheterization showing patent stent within the LAD with a jailed diagonal branch. Again yesterday she went to [facility] for the same complaint of chest discomfort and has been transferred for the same here. Patient was started on a heparin drip and cardiology services have been consulted The hospital records from [facility] have been reviewed and a sodium of 119 was noted and the other laboratory data were within normal limits. Patient did get an echocardiogram showing EF of 50-55% today. On reviewing her labs her sodium is at 128. Review of systems Constitutional: No fever chills or rigors Cardiovascular; no chest pain, palpitations or difficulty in breathing Respiratory: No cough or sputum production GI: No abdominal pain nausea vomiting or diarrhea : No dysuria or hematuria Objective - Vital Signs Vital signs: Vital Signs Temp 97.7 F 07/12/17 08:00 Pulse 60 07/12/17 12:00 Resp 16 07/12/17 12:00 BP 141/64 07/12/17 12:00 Pulse Ox 94 L 07/12/17 12:00 Intake & Output 07/11/17 07/12/17 07/12/17 18:59 06:59 18:59 Intake Total 480 480 Output Total 800 600 Balance -320 -120 Weight 66.1 kg 66.1 kg Intake: Oral 480 480 Output: Urine 800 600 Other: Voiding Method Toilet # Voids 2 - Exam GENERAL EXAM GEN. APPEARANCE: alert, in no apparent distress HEAD EXAM: atraumatic, normocephalic, normal inspection EYE EXAM: normal appearance, PERRL, EOMI. Absent: scleral icterus, conjunctival injection, periorbital swelling ENT EXAM: normal exam, mucous membranes moist NECK EXAM: normal inspection. Absent: tenderness, meningismus, full ROM, lymphadenopathy RESPIRATORY EXAM: normal lung sounds bilaterally. No Wheeze or crackles CARDIOVASCULAR EXAM: regular rate, normal rhythm, normal heart sounds. GI/ABDOMINAL EXAM: soft, normal bowel sounds. Absent: distended, tenderness, guarding, rebound, rigid EXTREMITIES EXAM: No edema. Positive for bilateral varicose veins NEUROLOGICAL EXAM: alert, oriented X3, CN II-XII intact, motor sensory deficit PSYCHIATRIC EXAM: normal affect, normal mood - Labs CBC & Chem 7: 07/12/17 06:09 07/12/17 06:09 Labs: Abnormal Lab Results - Last 24 Hours (Table) 07/12/17 07/12/17 Range/Units 06:09 06:09 RBC 3.70 L (3.80-5.40) m/uL Hgb 10.7 L (11.4-16.0) gm/dL Hct 31.9 L (34.0-46.0) % Sodium 128 L (137-145) mmol/L Chloride 95 L (98-107) mmol/L BUN 19 H (7-17) mg/dL Glucose 110 H (74-99) mg/dL Alkaline Phosphatase 150 H (38-126) U/L Assessment and Plan Plan: ASSESSMENT Chest discomfort with atypical features for acute coronary syndrome History of recent non-ST elevation WI status post stenting of the LAD Hypertension Hyponatremia most likely hypovolemic hyponatremia Hyperlipidemia Insomnia with anxiety PLAN: Patient was initially started on IV heparin drip and cardiology services have been consulted, patient had an echocardiogram this morning showing an ejection fraction of 50-55%. IV heparin has been discontinued. Patient's sodium is 128 this morning. Patient did not get any IV fluids overnight so will start her on normal saline at 75 mL per hr. Will check urine lytes. If sodium does not improve by tomorrow we'll consult nephrology. Further recommendations to follow depending on the progress.
[2017-07-12] MEDS ORDERED: hydrALAZINE HCL 50 MG TAB PO PRN (14:58)
--- NOTE | 2017-07-12 14:59 | P.NPCON ---
History of Present Illness - Reason for Consult hyponatremia - History of Present Illness Reason for consultation: Hyponatremia History of present illness: Patient is a 87-year-old female seen in renal consultation for hyponatremia. Patient was having some chest discomfort and felt weak and presented to [facility]. She was noted to have a sodium level of 119 and was subsequently sent to [facility] for further care. Sodium level upon admission here was 130 and is 128 today. Patient states prior to admission she was feeling quite weak and wasn't eating much. She does admit to drinking about 6 cups of water daily. She has 1 cup of coffee daily. Denies vomiting or diarrhea. Denies any prior history of renal disease. Her GFR is at baseline. She denies use of diuretics. Her oral intake is now improved and she is feeling better. She admits to good urine output. No evidence of hypotension. Chest pain is mostly resolved. Patient has a history of coronary artery disease and had a stent placed recently. Echocardiogram revealed ejection fraction of 50-55% with mild to moderate mitral regurgitation. Vital signs are stable. General: The patient appeared well nourished and normally developed. HEENT: Head exam is unremarkable. Neck is without jugular venous distension. LUNGS: Lungs are clear to auscultation and percussion. Breath sounds decreased. HEART: Rate and Rhythm are regular. First and second heart sounds normal. No murmurs, rubs or gallops. ABDOMEN: Abdominal exam reveals normal bowel sounds. Non-tender and non- distended. No evidence of peritonitis. EXTREMITITES: No clubbing, cyanosis, or edema. Past Medical History Past Medical History: Eye Disorder, Myocardial Infarction ([place]), Thyroid Disorder Additional Past Medical History / Comment(s): glaucoma Last Myocardial Infarction Date:: 2017 History of Any Multi-Drug Resistant Organisms: None Reported Past Surgical History: Heart Catheterization With Stent Additional Past Surgical History / Comment(s): colonoscopy, cataracts, heart cath with stent placement to the LAD 06-06-17 Past Anesthesia/Blood Transfusion Reactions: No Reported Reaction Date of Last Stent Placement:: 2017 Past Psychological History: No Psychological Hx Reported Smoking Status: Never smoker Past Alcohol Use History: None Reported Past Drug Use History: None Reported - Past Family History Father Family Medical History: No Reported History Mother Family Medical History: No Reported History Medications and Allergies Home Medications Medication Instructions Recorded Confirmed Type Latanoprost [Xalatan 0.005%] 1 drop BOTH EYES HS 06/06/17 07/11/17 History Levothyroxine Sodium [Synthroid] 150 mcg PO DAILY 06/06/17 07/11/17 History Timolol 0.5% Ophth Soln [Timoptic 2 drops BOTH EYES BID 06/06/17 07/11/17 History 0.5% Ophth Soln] Aspirin 81 mg PO DAILY #30 chew 06/09/17 07/11/17 Rx Atorvastatin [Lipitor] 40 mg PO HS #30 tab 06/09/17 07/11/17 Rx Metoprolol Tartrate [Metoprolol 12.5 mg PO TID 06/28/17 07/11/17 History Tartrate] Isosorbide Mononitrate ER [Imdur] 30 mg PO DAILY 07/10/17 07/11/17 History Calcium/Mag/Zinc/D3 1 tab PO DAILY 07/11/17 07/11/17 History Cholecalciferol (Vitamin D3) 2,000 unit PO DAILY 07/11/17 07/11/17 History [Vitamin D3] Clopidogrel [Plavix] 75 mg PO DAILY 07/11/17 07/11/17 History Escitalopram [Lexapro] See Taper PO DAILY 07/11/17 07/11/17 History Fish Oil/Dha/Epa [Fish Oil 1,200 1 cap PO DAILY 07/11/17 07/11/17 History mg Fish Oil] Garlic 1 tab PO DAILY 07/11/17 07/11/17 History Lisinopril [Prinivil] 10 mg PO DAILY 07/11/17 07/11/17 History Multivitamin/Iron/Folic Acid 1 tab PO DAILY 07/11/17 07/11/17 History [Centrum Complete Multivit Tab] Nitroglycerin Sl Tabs [Nitrostat] 0.4 mg SUBLINGUAL Q5M PRN 07/11/17 07/11/17 History Ranitidine HCl 150 mg PO DAILY PRN 07/11/17 07/11/17 History Ubidecarenone [Co Q-10] 100 mg PO DAILY 07/11/17 07/11/17 History Allergies Allergy/AdvReac Type Severity Reaction Status Date / Time No Known Allergies Allergy Verified 06/28/17 08:07 Physical Exam Vitals: Vital Signs Temp Pulse Resp BP BP Pulse Ox 07/12/17 12:00 60 16 141/64 94 L 07/12/17 08:00 97.7 F 71 16 181/80 100 07/12/17 07:28 97 07/12/17 04:00 98.7 F 74 16 150/75 97 07/12/17 00:00 61 16 140/67 100 07/11/17 21:50 100 07/11/17 20:00 66 16 108/56 95 07/11/17 16:41 97.6 F 61 16 107/55 97 Intake and Output 07/11/17 07/12/17 07/12/17 22:59 06:59 14:59 Intake Total 240 480 Output Total 600 Balance 240 -120 Intake: Oral 240 480 Output: Urine 600 Other: Voiding Method Toilet # Voids 1 2 Weight 66.1 kg 66.1 kg Results - Lab Results Most recent lab results Calcium 9.1 mg/dL (8.4-10.2) 07/12/17 06:09 07/12/17 06:09 07/12/17 06:09 Assessment and Plan Plan: Assessment: #1. Hypovolemic hyponatremia improved with IV hydration. Also component of tea and toast diet she wasn't eating much prior to admission. Sodium level today down to 128 and IV fluids have been resumed. Patient appears euvolemic at this time. #2. Atypical chest pain being followed by cardiology. #3. Recent myocardial infarction status post stenting to the LAD. #4. Benign hypertension. Blood pressures on the higher side. Plan: Continue with normal saline at 75 mL an hour. Check serum and urine osmolality as well as urine sodium. Repeat sodium level at 8 PM today. Check TSH and uric acid level. 1200 mL fluid restriction. Increase hydralazine to 50 mg 3 times daily. Thank you for the consultation. I will continue to follow the patient with you during her hospital stay.
[2017-07-12] MEDS: DOCUSATE 100 MG CAP PO PRN (15:02)
[2017-07-12 15:18] LABS: Uric Acid 3.9 mg/dL (3.7-7.4)
--- NOTE | 2017-07-12 15:19 | P.PN ---
Subjective Progress Note Date: 07/12/17 This is an 87-year-old female with history of hypertension, hyperlipidemia, who presented to the hospital with a non-ST elevation myocardial infarction on June 06, she was transferred here from [facility], on arrival to our emergency room patient again had chest pain and was found to have acute ST segment elevation from V1 to V6 so she was taken to the cardiac catheterization lab by Dr. Chong. Cardiac catheterization revealed a 99 % focal stenosis in the LAD so the patient subsequently underwent angioplasty and stenting of that vessel by Dr. Gabo Hoang. Her echocardiogram with Doppler study performed on that admission revealed an ejection fraction of 45-50% with anterior apical hypokinesia noted. Patient returned to the hospital on June 28 with chest discomfort similar to what she had in May, she was seen in consultation by Dr. Casillas and recommended to undergo a repeat cardiac catheterization. Cardiac catheterization at that time revealed a patent stent within the LAD with a jailed diagonal branch noted on previous. Angiographic data was reviewed with Dr. Gabo Hoang in maximum medical therapy was advised. Nitrates were added to the patient's medication regime. According to the patient, since the time of her initial DC she has been progressively more weak and short of breath. She presents to the hospital again on this occasion with symptoms of recurrent chest discomfort. Patient states that she feels a discomfort right in the center of her chest in the upper epigastric region when I asked her if it similar to what she had at the time of her DC she states she is not sure. Patient did take aspirin at the time of her chest pain, she did not take a nitroglycerin because apparently the last time she took nitro she passed out. EKG performed at [facility] showed a normal sinus rhythm with biphasic T waves in the anterior leads. EKG on arrival here showed similar changes with mild progression of changes noted on repeat EKG. Let pressure 162/70 with a heart rate in the 60s, 100% on room air. Troponins have been negative 3. Chest x-ray performed there was normal BUN 16, creatinine 0.7 , sodium 119 potassium 4.8, magnesium 2.0 troponin 0.01 TSH 2.6 white blood cell count 6.7 hemoglobin 11.7, hematocrit 34.1 and platelet [id number]. At the time of my examination this morning, she is currently chest pain-free. She is extremely anxious and concerned about the fact that she feels so weak. Her son is at bedside. 07/12/2017 Patient was seen and examined today, states that she's feeling significantly better. She's been up ambulating in the hallway most of the morning. Hemoglobin today 10.7, sodium 128, potassium 4.9, BUN 19, creatinine 0.6. Echocardiogram with Doppler study was performed which revealed an ejection fraction of 50-55% with mild to moderate mitral regurgitation , patient has been hesitant the past to take any nitroglycerin because she had a syncopal episode after taking 2 nitro as on an occasion. We will attempt to give one sublingual nitroglycerin here after the patient's appropriately hydrated, and if she tolerates well we would recommend that she take nitroglycerin when necessary with her on discharge. Planning for possible discharge home in 24 hours if stable. Objective - Vital Signs Vital signs: Vital Signs Temp 97.7 F 07/12/17 08:00 Pulse 60 07/12/17 12:00 Resp 16 07/12/17 12:00 BP 141/64 07/12/17 12:00 Pulse Ox 94 L 07/12/17 12:00 Intake & Output 07/11/17 07/12/17 07/12/17 18:59 06:59 18:59 Intake Total 480 480 Output Total 800 600 Balance -320 -120 Weight 66.1 kg 66.1 kg Intake: Oral 480 480 Output: Urine 800 600 Other: Voiding Method Toilet # Voids 2 - Exam PHYSICAL EXAMINATION: HEENT: Head is atraumatic, normocephalic. Pupils equal, round. Neck is supple. There is no elevated jugular venous pressure. HEART EXAMINATION: Heart S1 and S2 with soft systolic murmur is heard. CHEST EXAMINATION: Lungs are clear to auscultation and precussion. No chest wall tenderness is noted on palpation or with deep breathing. ABDOMEN: Soft, nontender. Bowel sounds are heard. No organomegaly noted. EXTREMITIES: 2+ peripheral pulses with no evidence of peripheral edema and no calf tenderness noted. NEUROLOGIC patient is awake, alert and oriented -3. . - Labs CBC & Chem 7: 07/12/17 06:09 07/12/17 06:09 Labs: Abnormal Lab Results - Last 24 Hours (Table) 07/12/17 07/12/17 Range/Units 06:09 06:09 RBC 3.70 L (3.80-5.40) m/uL Hgb 10.7 L (11.4-16.0) gm/dL Hct 31.9 L (34.0-46.0) % Sodium 128 L (137-145) mmol/L Chloride 95 L (98-107) mmol/L BUN 19 H (7-17) mg/dL Glucose 110 H (74-99) mg/dL Alkaline Phosphatase 150 H (38-126) U/L Assessment and Plan Plan: Assessment and plan #1 chest pain with some atypical features for acute coronary syndrome. Troponins are negative 3. Her EKG shows normal sinus rhythm with biphasic ST- T wave changes in the anterior leads. #[address] elevation anterior wall myocardial infarction with stenting of the LAD. Patient underwent a cardiac catheterization which revealed a patent stent in the LAD, there is a diagonal branch that was jailed within the stent at the end of the last angioplasty and it looked as same with good flow within the diag. Medical therapy advised. #3 symptoms of progressive tiredness and weakness could be secondary to hyponatremia. Sodium 119 at [facility] #4 hypertension #5 hyperlipidemia Plan Echocardiogram with Doppler study revealed an ejection of 50-55%. Mild to moderate mitral regurg noted. We will continue to hydrate the patient, check the sodium level in the morning, plan for possible discharge home in 24 hours if stable. DNP note has been reviewed, I agree with a documented findings and plan of care. Patient was seen and examined.
[2017-07-12] MEDS: NITROGLYCERIN SL TABS 0.4 MG TAB SUBLINGUAL PRN (15:20)
[2017-07-12 16:28] LABS: Sodium, Urine Random 48 mmol/L (30-90); Total Protein,Urine Random 11 mg/dL (<12)
[2017-07-12] MEDS: ATORVASTATIN 40 MG TAB PO SCH (21:01)
[2017-07-12] MEDS: LISINOPRIL 5 MG TAB PO SCH (21:01)
[2017-07-12] MEDS ORDERED: FUROSEMIDE 10 MG/ML 2 ML VIAL IV ONE (21:56)
--- NOTE | 2017-07-12 23:40 | P.HPIM ---
History of Present Illness H&P Date: 07/11/17 Chief Complaint: Chest pain Ms. Segundo is an 87-year-old female with a past medical history of hypertension, thyroid disorder, recent [place] status post stenting transferred from [facility] after being treated for chest pain. Patient had a NSTEMI on June 06- she is status post angioplasty and stenting of LAD. Patient had an echo showing EF of 45-50% with anterior wall hypokinesia. Patient was again admitted on June 28 for chest acute discomfort and she had a cardiac catheterization showing patent stent within the LAD with a jailed diagonal branch. Again yesterday she went to [facility] for the same complaint of chest discomfort and has been transferred for the same here. Patient was started on a heparin drip and cardiology services have been consulted. The hospital records from [facility] have been reviewed and a sodium of 119 was noted and the other laboratory data were within normal limits. Today the patient is sitting up in a chair besides her bed stating that she is feeling weak and tired. She has a family members at the bedside. For the past 4-5 days patient states that she lost her appetite and has not been eating and drinking well. Patient denies having any difficulty in breathing fever cough. No complaints of any abdominal pain nausea vomiting or diarrhea. She states that she did not have a bowel movement this morning only. Denies having any hematuria or dysuria. No complaints of any lower extremity swelling. Review of Systems REVIEW OF SYSTEMS: PSYCH: Normal psychiatric exam NEURO:No c/o weakness of the extremties, No facial droop, No speech abnormalities. VASCULAR: Peripheral nervous system within the normal limits no edema HEMATOLOGIC: No history of easy bleeding and bruising . No recent infections . RESPIRATORY: No cough, No SOB, No chest discomfort. 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 GI: No abdominal pain, Nausea or vomiting. No constipation or diarrhea. Past Medical History Past Medical History: Eye Disorder, Myocardial Infarction ([place]), Thyroid Disorder Additional Past Medical History / Comment(s): glaucoma Last Myocardial Infarction Date:: 2017 History of Any Multi-Drug Resistant Organisms: None Reported Past Surgical History: Heart Catheterization With Stent Additional Past Surgical History / Comment(s): colonoscopy, cataracts, heart cath with stent placement to the LAD 06-06-17 Past Anesthesia/Blood Transfusion Reactions: No Reported Reaction Date of Last Stent Placement:: 2017 Past Psychological History: No Psychological Hx Reported Smoking Status: Never smoker Past Alcohol Use History: None Reported Past Drug Use History: None Reported - Past Family History Father Family Medical History: No Reported History Mother Family Medical History: No Reported History Medications and Allergies Home Medications Medication Instructions Recorded Confirmed Type Latanoprost [Xalatan 0.005%] 1 drop BOTH EYES HS 06/06/17 07/11/17 History Levothyroxine Sodium [Synthroid] 150 mcg PO DAILY 06/06/17 07/11/17 History Timolol 0.5% Ophth Soln [Timoptic 2 drops BOTH EYES BID 06/06/17 07/11/17 History 0.5% Ophth Soln] Aspirin 81 mg PO DAILY #30 chew 06/09/17 07/11/17 Rx Atorvastatin [Lipitor] 40 mg PO HS #30 tab 06/09/17 07/11/17 Rx Metoprolol Tartrate [Metoprolol 12.5 mg PO TID 06/28/17 07/11/17 History Tartrate] Isosorbide Mononitrate ER [Imdur] 30 mg PO DAILY 07/10/17 07/11/17 History Calcium/Mag/Zinc/D3 1 tab PO DAILY 07/11/17 07/11/17 History Cholecalciferol (Vitamin D3) 2,000 unit PO DAILY 07/11/17 07/11/17 History [Vitamin D3] Clopidogrel [Plavix] 75 mg PO DAILY 07/11/17 07/11/17 History Escitalopram [Lexapro] See Taper PO DAILY 07/11/17 07/11/17 History Fish Oil/Dha/Epa [Fish Oil 1,200 1 cap PO DAILY 07/11/17 07/11/17 History mg Fish Oil] Garlic 1 tab PO DAILY 07/11/17 07/11/17 History Lisinopril [Prinivil] 10 mg PO DAILY 07/11/17 07/11/17 History Multivitamin/Iron/Folic Acid 1 tab PO DAILY 07/11/17 07/11/17 History [Centrum Complete Multivit Tab] Nitroglycerin Sl Tabs [Nitrostat] 0.4 mg SUBLINGUAL Q5M PRN 07/11/17 07/11/17 History Ranitidine HCl 150 mg PO DAILY PRN 07/11/17 07/11/17 History Ubidecarenone [Co Q-10] 100 mg PO DAILY 07/11/17 07/11/17 History Allergies Allergy/AdvReac Type Severity Reaction Status Date / Time No Known Allergies Allergy Verified 06/28/17 08:07 Physical Exam Vitals: Vital Signs Temp Pulse Pulse Resp BP BP BP 07/11/17 11:59 97.6 F 66 16 162/73 07/11/17 08:04 97.6 F 67 16 162/73 07/11/17 04:00 96.8 F L 66 18 147/70 07/11/17 00:00 96.9 F L 68 18 146/67 07/10/17 22:12 151/79 152/71 07/10/17 20:57 97.4 F L 74 16 174/81 07/10/17 18:14 66 16 138/65 07/10/17 17:09 97.1 F L 62 16 173/79 Pulse Ox 07/11/17 11:59 100 07/11/17 08:04 100 07/11/17 04:00 100 07/11/17 00:00 97 07/10/17 22:12 98 07/10/17 20:57 98 07/10/17 18:14 100 07/10/17 17:09 100 Intake and Output 07/10/17 07/11/17 07/11/17 22:59 06:59 14:59 Intake Total 102.879 Output Total 300 Balance -197.121 Intake: Intake, IV Titration 102.879 Amount Heparin Sod,Pork in 0.45% 102.879 NaCl 25,000 unit In 0.45 % NaCl 1 500ml.bag @ 12 UNITS/KG/HR 14.91 mls/hr IV .Q24H [facility] Rx#: [id number] Output: Urine 300 Other: Weight 62.142 kg 66.7 kg GENERAL EXAM GEN. APPEARANCE: alert, in no apparent distress HEAD EXAM: atraumatic, normocephalic, normal inspection EYE EXAM: normal appearance, PERRL, EOMI. Absent: scleral icterus, conjunctival injection, periorbital swelling ENT EXAM: normal exam, mucous membranes moist NECK EXAM: normal inspection. Absent: tenderness, meningismus, full ROM, lymphadenopathy RESPIRATORY EXAM: normal lung sounds bilaterally. Absent: respiratory distress , wheezes, rales, rhonchi, stridor CARDIOVASCULAR EXAM: regular rate, normal rhythm, normal heart sounds. Absent : systolic murmur, diastolic murmur, rubs, gallop, clicks GI/ABDOMINAL EXAM: soft, normal bowel sounds. Absent: distended, tenderness, guarding, rebound, rigid EXTREMITIES EXAM: normal inspection, full ROM, normal capillary refill. Absent : tenderness, pedal edema, joint swelling, calf tenderness NEUROLOGICAL EXAM: alert, oriented X3, CN II-XII intact, motor sensory deficit PSYCHIATRIC EXAM: normal affect, normal mood SKIN EXAM: warm, dry, intact, normal color. Absent: rash Results CBC & Chem 7: 07/11/17 06:10 Labs: Abnormal Lab Results - Last 24 Hours (Table) 07/11/17 07/11/17 07/11/17 Range/Units 02:20 06:10 06:10 APTT 46.1 H (22.0-30.0) sec Sodium 130 L (137-145) mmol/L Carbon Dioxide 21 L (22-30) mmol/L Glucose 107 H (74-99) mg/dL HDL Cholesterol 70 H (40-60) mg/dL 07/11/17 Range/Units 08:23 APTT 52.6 H (22.0-30.0) sec Sodium (137-145) mmol/L Carbon Dioxide (22-30) mmol/L Glucose (74-99) mg/dL HDL Cholesterol (40-60) mg/dL Thrombosis Risk Factor Assmnt - Choose All That Apply Each Risk Factor Represents 3 Points: Age 75 years or older Thrombosis Risk Factor Assessment Total Risk Factor Score: 3 Thrombosis Risk Factor Assessment Level: Moderate Risk Assessment and Plan Plan: ASSESSMENT Chest discomfort with atypical features for acute coronary syndrome History of recent non-ST elevation [place] status post stenting of the LAD Hypertension Hyponatremia most likely hypovolemic hyponatremia Hyperlipidemia Insomnia with anxiety PLAN: Patient was initially started on IV heparin drip and cardiology services have been consulted. I had a discussion with the cardia services and as the patient' s EKG has been within normal limits and troponins negative 2 the heparin has been discontinued. Most likely her weakness can be secondary to hypovolemic hyponatremia so will continue with IV fluids at 75 mL per output. Her sodium from this morning is 130 which showed significant improvement from [facility] which was 119. The family members are present at the bedside and mentioned that the patient has been feeling anxious. The patient states that she could not sleep well for the past few days as she has been in and out of the hospital and is scared that she might have the chest discomfort again and is very anxious about it. Will give her trial of Restoril tonight. We'll continue with the rest of her medication regimen and further recommendations to follow depending on the progress of the patient.
[2017-07-13] MEDS: LEVOTHYROXINE 75 MCG TAB PO SCH (06:20)
[2017-07-13 06:52] LABS: Anion Gap 11 mmol/L; Blood Urea Nitrogen 15 mg/dL (7-17); Calcium 9.4 mg/dL (8.4-10.2); Carbon Dioxide 27 mmol/L (22-30); Chloride 92 mmol/L (98-107); Glucose 104 mg/dL (74-99); Potassium 4.8 mmol/L (3.5-5.1); Sodium 130 mmol/L (137-145)
[2017-07-13] MEDS: NITROGLYCERIN SL TABS 0.4 MG TAB SUBLINGUAL PRN (09:13)
[2017-07-13] MEDS: LATANOPROST 0.005% OPHTH DROPS 2.5 ML BTL RIGHT EYE SCH (09:17)
[2017-07-13] MEDS: HEPARIN SODIUM,PORCINE 5,000 UNIT/ML 1 ML VIAL SQ SCH ×2 (09:17→16:01)
[2017-07-13] MEDS: NON-FORMULARY DRUG (Ubidecarenone [Co Q-10] 100 MG) PO SCH (09:18)
[2017-07-13] MEDS: FAMOTIDINE 20 MG TAB PO SCH (09:21)
[2017-07-13] MEDS: DOCUSATE 100 MG CAP PO PRN (09:21)
[2017-07-13] MEDS: METOPROLOL TARTRATE 25 MG TAB PO SCH ×2 (09:22→16:01)
[2017-07-13] MEDS: ASPIRIN 81 MG PO SCH (09:22)
[2017-07-13] MEDS: CLOPIDOGREL 75 MG TAB PO SCH (09:22)
[2017-07-13] MEDS: TIMOLOL 0.5% OPHTH DROPS 5 ML BTL BOTH EYES SCH (09:22)
[2017-07-13] MEDS: ISOSORBIDE MONONITRATE ER 30 MG TAB.ER.24H PO SCH (09:22)
[2017-07-13 15:26] VITALS: BP 110/53; PULSE 65; RESP 14; TEMP 97.8
--- NOTE | 2017-07-13 18:51 | PN ---
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 Patient was hypovolemic initially; however, her serum sodium worsened with saline, which was eventually discontinued, and she received one dose of Lasix. Serum sodium is up to 130 today. Patient states she is feeling fairly well. She denies any significant complaints. Urine osmolality was 355 and urine sodium was 48. On examination, patient is comfortable, awake, not in any acute distress. Blood pressure is 110/53, heart rate 65 per minute. She is afebrile. EXAMINATION OF THE HEART: S1, S2. EXAMINATION OF LUNGS: Bilateral breath sounds are heard. ABDOMEN: Soft, non-tender. Examination of lower extremities shows no evidence of edema. MEDICAL ONCOLOGY PHYSICIAN exam is grossly intact. Labs show sodium 130, potassium 4.8, chloride 92, BUN 15, serum creatinine 0.65, hemoglobin 10.7 g/dL. ASSESSMENT: 1. 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 Serum sodium worsened with saline, which is now discontinued, and she received one dose of IV Lasix. She will be maintained on fluid restriction and I have advised her to increase protein in her diet. She may need low-dose loop diuretics down the road. Chest x-ray was not done on admission. We will obtain a chest x-ray prior to discharge. 2. Recent myocardial infarction, status post stenting to left anterior descending coronary artery. 3. Benign hypertension. 4. Atypical chest pain. PLAN: Continue with fluid restriction. Check a chest x-ray. Repeat labs in a.m. Patient can be discharged tomorrow with close followup as outpatient with repeat labs as outpatient. In the meantime, also increase protein intake. MMODL / IJN: [id number] /
--- NOTE | 2017-07-14 22:29 | P.DS ---
Providers Date of admission: 07/10/17 19:26 Expected date of discharge: 07/13/17 Attending physician: Romulo Amos MD Consults: 07/10/17 19:26 Consult Physician Urgent Consulting Provider: Tiffanie Hoang Consult Reason/Comments: Chest pain Do you want consulting provider notified?: Yes 07/12/17 14:26 Consult Physician Routine Consulting Provider: Chaz Gan Consult Reason/Comments: low sodium Do you want consulting provider notified?: Yes Primary care physician: Thomas Ceballos MD Hospital Course: Chest pain transferred from [facility] Ms. Segundo is an 87-year-old female with a past medical history of hypertension, thyroid disorder, recent [place] status post stenting transferred from [facility] after being treated for chest pain. Patient had a NSTEMI on June 06- she is status post angioplasty and stenting of LAD. Patient had an echo showing EF of 45-50% with anterior wall hypokinesia. Patient was again admitted on June 28 for chest acute discomfort and she had a cardiac catheterization showing patent stent within the LAD with a jailed diagonal branch. Again she went to [facility] for the same complaint of chest discomfort and has been transferred for the same here. Patient was started on a heparin drip and cardiology services have been consulted The hospital records from [facility] have been reviewed and a sodium of 119 was noted and the other laboratory data were within normal limits. Patient did get an echocardiogram showing EF of 50-55% with mild to moderate mitral regurgitation. Patient was initially started on IV fluids after which her sodium has trended up. Nephrology services day to evaluate the patient during the hospital stay. Minor changes were made with the blood pressure medications and she has been cleared by cardiology service is to be discharged home. Discussed with the family members were at the bedside regarding the change in the medications and also to have fluid restriction at 1200 cc per day. All the family members concerns have been answered. And the patient is being discharged home in a stable condition. DISCHARGE DIAGNOSIS Chest discomfort with atypical features for acute coronary syndrome History of recent non-ST elevation [place] status post stenting of the LAD Hypertension Hyponatremia most likely hypovolemic hyponatremia Hyperlipidemia Insomnia with anxiety More than 30 mins spent for the patient's discharge. Patient Condition at Discharge: Stable Plan - Discharge Summary New Discharge Prescriptions: New Lisinopril [Zestril] 5 mg PO HS #30 tab Metoprolol Tartrate [Lopressor] 25 mg PO TID #90 tab Continue Timolol 0.5% Ophth Soln [Timoptic 0.5% Ophth Soln] 2 drops BOTH EYES BID Levothyroxine Sodium [Synthroid] 150 mcg PO DAILY Latanoprost [Xalatan 0.005%] 1 drop BOTH EYES HS Aspirin 81 mg PO DAILY #30 chew Atorvastatin [Lipitor] 40 mg PO HS #30 tab Isosorbide Mononitrate ER [Imdur] 30 mg PO DAILY Ranitidine HCl 150 mg PO DAILY PRN PRN Reason: Heartburn Nitroglycerin Sl Tabs [Nitrostat] 0.4 mg SUBLINGUAL Q5M PRN PRN Reason: Chest Pain Fish Oil/Dha/Epa [Fish Oil 1,200 mg Fish Oil] 1 cap PO DAILY Escitalopram [Lexapro] See Taper PO DAILY Clopidogrel [Plavix] 75 mg PO DAILY Ubidecarenone [Co Q-10] 100 mg PO DAILY Multivitamin/Iron/Folic Acid [Centrum Complete Multivit Tab] 1 tab PO DAILY Garlic 1 tab PO DAILY Cholecalciferol (Vitamin D3) [Vitamin D3] 2,000 unit PO DAILY Calcium/Mag/Zinc/D3 1 tab PO DAILY Discontinued Metoprolol Tartrate [Metoprolol Tartrate] 12.5 mg PO TID Lisinopril [Prinivil] 10 mg PO DAILY Discharge Medication List Latanoprost [Xalatan 0.005%] 1 drop BOTH EYES HS 06/06/17 [History] Levothyroxine Sodium [Synthroid] 150 mcg PO DAILY 06/06/17 [History] Timolol 0.5% Ophth Soln [Timoptic 0.5% Ophth Soln] 2 drops BOTH EYES BID [History] Aspirin 81 mg PO DAILY #30 chew 06/09/17 [Rx] Atorvastatin [Lipitor] 40 mg PO HS #30 tab 06/09/17 [Rx] Isosorbide Mononitrate ER [Imdur] 30 mg PO DAILY 07/10/17 [History] Calcium/Mag/Zinc/D3 1 tab PO DAILY 07/11/17 [History] Cholecalciferol (Vitamin D3) [Vitamin D3] 2,000 unit PO DAILY 07/11/17 [History] Clopidogrel [Plavix] 75 mg PO DAILY 07/11/17 [History] Escitalopram [Lexapro] See Taper PO DAILY 07/11/17 [History] Fish Oil/Dha/Epa [Fish Oil 1,200 mg Fish Oil] 1 cap PO DAILY 07/11/17 [History] Garlic 1 tab PO DAILY 07/11/17 [History] Multivitamin/Iron/Folic Acid [Centrum Complete Multivit Tab] 1 tab PO DAILY [History] Nitroglycerin Sl Tabs [Nitrostat] 0.4 mg SUBLINGUAL Q5M PRN 07/11/17 [History] Ranitidine HCl 150 mg PO DAILY PRN 07/11/17 [History] Ubidecarenone [Co Q-10] 100 mg PO DAILY 07/11/17 [History] Lisinopril [Zestril] 5 mg PO HS #30 tab 07/13/17 [Rx] Metoprolol Tartrate [Lopressor] 25 mg PO TID #90 tab 07/13/17 [Rx] Follow up Appointment(s)/Referral(s): Salvatore Zamora MD [STAFF PHYSICIAN] - 08/02/17 9:30 am (Wednesday Previously scheduled appointment) [facility], [NON-STAFF] - Thomas Ceballos MD [Primary Care Provider] - 07/16/17 9:30 am (Wednesday) Patient Instructions/Handouts: Chest Pain (DC), Hyponatremia (DC) Discharge Disposition: HOME SELF-CARE
--- NOTE | 2017-07-22 12:38 | CDI ---
Last Revision, February 2017 Documentation Clarification Form Date: 07/22/17 From: Freya Oscar Christen Yumiko, Land Development Project Manager Hrs-8:30 am & 5 pm M-F Admit Date: 07/10/2017 7:26:00 PM Patient Name: Coco Segundo Visit Number: [id number] Discharge Date: ATTENTION: The Clinical Documentation Specialists (CDI) and [facility] Coding Staff appreciate your assistance in clarifying documentation. Please respond to the clarification below the line at the bottom and electronically sign. The CDI & [facility] Coding staff will review the response and follow-up if needed. Please note: Queries are made part of the Legal Health Record. If you have any questions, please contact the author of this message via ITS. Dr. Karl Santacruz Chest pain with atypical features for acute coronary syndrome is documented in the ED note, HP, consult, 07/12 & 07/13 PN and DS Patient C/O: chest pain History/Risk factors: Hx of CAD w stent, s/p CT, Clinical Indicators: Labs: Troponins negative X 3, EKG-normal sinus rhythm with biphaic ST-T wave changes in the anterior leads Treatment: In your professional opinion, can please clarify if the chest pain signifies, or is due to: CAD with angina (vessel type if known and type of angina) Atypical chest pain Other condition, please specify Unable to determine Please continue to document in your progress notes and discharge summary in order to capture severity of illness and risk of mortality. Include clinical findings that support your diagnosis. Atypical chest pain MTDD
== END 2017-07-13 18:25 | disposition home health service (06) | DRG 313 ==
LOC: EC 17:08 → 6SEL 19:26
PROVIDERS: ADMIT Internal Medicine; ATTEND Internal Medicine
DX: R07.89 Other chest pain (principal); E22.2 Syndrome of inappropriate secretion of antidiuretic hormone; E86.1 Hypovolemia; I34.0 Nonrheumatic mitral (valve) insufficiency; I25.10 Atherosclerotic heart disease of native coronary artery without angina pectoris; E78.5 Hyperlipidemia, unspecified; E07.9 Disorder of thyroid, unspecified; G47.00 Insomnia, unspecified; F41.9 Anxiety disorder, unspecified; I10 Essential (primary) hypertension; I25.2 Old myocardial infarction; H40.9 Unspecified glaucoma; Z79.82 Long term (current) use of aspirin; Z79.02 Long term (current) use of antithrombotics/antiplatelets; Z79.890 Hormone replacement therapy; Z79.899 Other long term (current) drug therapy; Z95.5 Presence of coronary angioplasty implant and graft; Z98.42 Cataract extraction status, left eye; Z98.41 Cataract extraction status, right eye
CPT/HCPCS: 36415; 80048; 80053; 80061; 81003; 82533; 82550; 82553; 82570; 83930; 83935; 84156; 84295; 84300; 84443; 84484; 84550; 85025; 85730; 93005; 93306; 94760; 96365; 96375; 96376; 99285